=== PATIENT | male | born 1970 | race Caucasian/White ===

== ENCOUNTER → 2025-03-15 11:33 | Outpatient (BNV) | payer OTHER, SELFPAY | PROVIDERS: PCP Internal Medicine; Visit Provider Psychiatry & Neurology Neurology | DX: G62.89 Other specified polyneuropathies (principal) | CPT/HCPCS: 95886; 95913 ==

== ENCOUNTER 2025-03-15 12:12 | Outpatient (REF) | payer OTHER, SELFPAY ==
--- NOTE | 2025-03-15 | EMG_ITS ---
Impression: Normal motor and sensory nerve conduction velocities in the right upper extremity. 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 EMG of the left L4-S1 innervated muscles is consistent with distal chronic neuropathic changes. Please see detailed neurophysiological report MTDD
--- OUTSIDE RECORDS SUMMARY | 2025-03-15 13:13 | XMS_ITS ---
Author Name [facility] Organization Unknown History of Medication Use Medication Directions Dispensed Refills Start Date End Date Stat cholecalciferol (VITAMIN D-3) 50 mcg (2,000 unit) capsule Take 1 capsule (2,000 Units total) by mouth 1 (one) time each day. 01/24/2025 active acetaminophen (TYLENOL) 500 mg tablet 1-2 tabs PO Q8 hrs prn pain 01/12/2025 active diclofenac (VOLTAREN) 1 % topical gel Apply 4 g topically 4 (four) times a day if needed (pain or swelling). 01/11/2025 active lisinopriL (PRINIVIL,ZESTRIL) 20 mg tablet Take 1 tablet (20 mg total) by mouth 1 (one) time each day. 12/22/2024 active atorvastatin (LIPITOR) 80 mg tablet Take 1 tablet (80 mg total) by mouth 1 (one) time each day. 12/08/2024 active dilTIAZem CD (CARDIZEM CD) 360 mg 24 hr capsule Take 1 capsule (360 mg total) by mouth 1 (one) time each day. 12/08/2024 active omeprazole (PriLOSEC) [address] capsule Take 1 capsule (40 mg total) by mouth 1 (one) time each day. Do not crush or chew. 12/08/2024 active buprenorphine-naloxone (SUBOXONE) 2-0.5 [address] tablet [address] 2 tablets under the tongue every 4 (four) hours. After the medication is completely dissolved, take a large sip of water, swish it around teeth and gums, and swallow. Wait at least 1 hour before brushing teeth to avoid damage to your teeth. Max Daily Amount: 12 tablets 11/04/2024 active nystatin (MYCOSTATIN) 100,000 unit/gram powder Topical application on the rash (under the breast) twice a day for 7 to 10 days 01/15/2024 active zolpidem (AMBIEN) 10 mg tablet 10 mg. 07/29/2017 active escitalopram (LEXAPRO) 20 mg tablet 20 mg. 08/18/2012 active Allergies Allergen Reaction Severity Comment Documented Date Source Statu s IODINATED CONTRAST MEDIA 08/20/2022 [facility] active INFLUENZA VIRUS VACCINE, LIVE ATTENUATED 10/08/2021 [facility] active INFLUENZA VIRUS VACCINE TRI-SPLIT [id number] 06/14/2012 [facility] active MORPHINE Other Reaction(s): Intolerance - Will Not Trigger Allergy Alert,Arms got numb and red, Chest and face also got red Other reaction(s): Not Indicated 12/10/2010 [facility] active SULFA (SULFONAMIDE ANTIBIOTICS) RASH 12/09/2010 [facility] active Problems Problem Status Onset Date Problem Type Date of Resoluti on Source Carpal tunnel syndrome active 2017-07-29 ProblemAct [facility] Lumbar radiculopathy active 2014-06-15 ProblemAct [facility] Anxiety disorder active 2022-04-10 ProblemAct [facility] Fatty liver disease, nonalcoholic active 2016-08-20 ProblemAct [facility] Nephrolithiasis active 2016-05-13 Problem[address] [facility] Hyperlipidemia active 2017-07-29 ProblemAct [facility] Neuropathic pain active 2017-01-21 ProblemAct [facility] Opioid abuse, in remission ([facility] V24, [facility] V28) active 2015-04-26 ProblemAct [facility] Esophageal reflux active 2017-07-29 ProblemAct [facility] Type 2 diabetes mellitus without complication, without long-term current use of insulin ([facility] V24, [facility] V28) active 2017-12-09 ProblemAct [facility] Benign prostatic hyperplasia with urinary frequency active 2022-04-10 ProblemAct [facility] Primary osteoarthritis of right knee active 2023-02-11 ProblemAct [facility] Morbid obesity ([facility] V24, [facility] V28) active 2017-01-21 ProblemAct [facility] Primary hypertension active 2017-07-29 ProblemAct [facility] Psychosis, bipolar affective ([facility] V24, [facility] V28) active 2017-01-21 ProblemAct [facility] Elevated AST (SGOT) active 2016-05-13 ProblemAct [facility] Immunizations Vaccine Date Source Lot Number Status Tdap Tetanus diptheria acell ular pertussis (Boostrix; Adacel) 7yo and older 04/10/2022 [facility] [id number] completed Influenza trivalent, 0.5mL, preservative free (Fluarix; FluLaval; Fluzone) ages 6mo and older (Afluria) 3 years and older 06/14/2012 [id number] completed Tdap Tetanus diptheria acell ular pertussis (Boostrix; Adacel) 7yo and older 09/26/2010 [facility] [id number] completed
--- OUTSIDE RECORDS SUMMARY | 2025-03-15 13:13 | XMS_ITS | Clinical Summary ---
Author Organization [address] Address [address] [place] [address] Phone Care Team Providers Care Sleeve Tailor Name Role Phone Indu Gonzalez MD Primary Care Provider [phone] Allergies Active Allergy Reactions Criticality Noted Date Comments Influenza Virus Vaccine Tri-Split 4486-9988 06/14/2012 Influenza Virus Vaccine, Live Attenuated 10/08/2021 Iodinated Contrast Media 08/20/2022 Morphine 12/10/2010 Other Reaction(s): Intolerance - Will Not Trigger Allergy Alert Arms got numb and red, Chest and face also got red Other reaction(s): Not Indicated Sulfa (Sulfonamide Antibiotics) Rash 12/09/2010 Medications zolpidem (AMBIEN) 10 mg tablet 10 mg. 07/29/20 17 Active nystatin (MYCOSTATIN) 100,000 unit/gram powder Topical application on the rash (under the breast) twice a day for 7 to 10 days 01/15/20 24 Active escitalopram (LEXAPRO) 20 mg tablet 20 mg. 08/18/20 12 Active buprenorphine-nalo xone (SUBOXONE) 2-0.5 [address] tablet [address] 2 tablets under the tongue every 4 (four) hours. After the medication is completely dissolved, take a large sip of water, swish it around teeth and gums, and swallow. Wait at least 1 hour before brushing teeth to avoid damage to your teeth. Max Daily Amount: 12 tablets 11/05/19 25 025 Active atorvastatin (LIPITOR) 80 mg tablet Take 1 tablet (80 mg total) by mouth 1 (one) time each day. 90 tablet 1 12/09/19 25 Active dilTIAZem CD (CARDIZEM CD) 360 mg 24 hr capsule Take 1 capsule (360 mg total) by mouth 1 (one) time each day. 90 capsule 1 12/09/19 25 Active omeprazole (PriLOSEC) [address] capsule Take 1 capsule (40 mg total) by mouth 1 (one) time each day. Do not crush or chew. 90 each 1 12/09/19 25 025 Active diclofenac (VOLTAREN) 1 % topical gelIndications:Sabra alex osteoarthritis of right knee Apply 4 g topically 4 (four) times a day if needed (pain or swelling). 100 g 2 01/12/20 25 Active acetaminophen (TYLENOL) 500 mg tablet 1-2 tabs PO Q8 hrs prn pain 60 tablet 2 01/13/20 25 Active blood sugar diagnostic (FreeStyle Lite Strips) test strip Use to check fasting blood sugar daily 100 each 3 03/01/20 25 Active FreeStyle Lancets 28 gauge lancets Use to check fasting blood sugar once daily 100 each 3 03/01/20 25 Active cholecalciferol (VITAMIN D-3) 50 mcg (2,000 unit) capsule Take 1 capsule (2,000 Units total) by mouth 1 (one) time each day. 90 capsule 1 03/07/20 25 Active lisinopriL (PRINIVIL,ZESTRIL) 20 mg tablet Take 1 tablet (20 mg total) by mouth 1 (one) time each day. 90 each 1 03/07/20 25 026 Active lisinopriL (PRINIVIL,ZESTRIL) 20 mg tablet Take 1 tablet (20 mg total) by mouth 1 (one) time each day. 90 each 12/23/19 25 025 Discontinu ed(Reorder ) cholecalciferol (VITAMIN D-3) 50 mcg (2,000 unit) capsule Take 1 capsule (2,000 Units total) by mouth 1 (one) time each day. 30 capsule 5 01/25/20 25 025 Discontinu ed(Reorder ) diazePAM (Valium) 5 mg tablet Take 1 tablet (5 mg total) by mouth 1 (one) time for 1 dose. Take 1 tab by mouth 30 min prior to radiology exam Max Daily Amount: 5 mg 1 each 02/22/20 25 025 lancets lancets Check blood sugar daily 100 each 3 03/01/20 25 025 Discontinu ed(Dose adjustment ) glucose blood test strip Use to test blood sugar daily 100 each 3 03/01/20 25 025 Discontinu ed(Dose adjustment ) Active Problems Problem Noted Date Diagnosed Date Primary osteoarthritis of right knee 02/11/2023 Benign prostatic hyperplasia with urinary freque ncy 04/10/2022 Anxiety disorder 04/10/2022 Type 2 diabetes mellitus wit hout complication, without long-term current use of insulin ([facility] V24, [facility] V28) 12/09/2017 Primary hypertension 07/29/2017 Hyperlipidemia 07/29/2017 Esophageal reflux 07/29/2017 Carpal tunnel syndrome 07/29/2017 Neuropathic pain 01/21/2017 Morbid obesity ([facility] V24, [facility] V28) 2016 Psychosis, bipolar affective ([facility] V24, [facility] V28) 01/21/2017 Fatty liver disease, nonalcoholic 08/20/2016 Nephrolithiasis 05/13/2016 Elevated AST (SGOT) 05/13/2016 Elevated alanine aminotransferase (ALT) level Opioid abuse, in remission ([facility] V24, [facility] V28) 04/26/2015 Lumbar radiculopathy 06/15/2014 Resolved Problems Problem Noted Date Diagnosed Date Resolved Date Hypoalbuminemia 10/10/2024 11/02/2024 Anasarca 10/10/2024 11/02/2024 SIRS with acute organ dysfun ction due to infectious process ([facility] V24, [facility] V28) 10/09/2024 11/02/2024 Acute respiratory failure wi th hypoxemia ([facility] V24, [facility] V28) 10/07/2024 11/02/2024 Endotracheally intubated 10/07/202412/2024 On mechanically assisted marv tilation ([facility] V24, [facility] V28) 10/07/2024 11/02/2024 Aspiration pneumonia of both upper lobes due to gastric secretions ([facility] V24, [facility] V28) 10/07/2024 11/02/2024 Hypotension (arterial) 10/07/202411/02 Fever 10/07/2024 11/02/2024 Poorly controlled type 2 david betes mellitus ([facility] V24, [facility] V28) 10/07/2024 11/02/2024 Colitis 10/04/2024 11/02/2024 Constipation 10/03/2024 11/02/2024 Focal active colitis 10/03/2024 025 Encounters Date Type Department Care Team Description 03/08/2025 7:40 PM EDT - 03/08/2025 11:34 PM EDT Emergency [facility] Emergency [address] [place] [phone] Iván Calhoun MD Dark red stool (Primary Dx) Discharge Disposition: Home or Self Care 03/07/2025 2:00 PM EDT Office Visit Adult Medicine [address] [phone] Indu Gonzalez MD Type 2 diabetes mellitus without complication, without long-term current use of insulin ([facility] V24, [facility] V28) (Primary Dx); Primary hypertension; Mixed hyperlipidemia 03/07/2025 Telephone Adult Medicine [address] [phone] Indu Gonzalez MD vna 03/02/2025 9:00 AM EDT Clinical Support [address] [phone] Danielle Boyd RN Ileostomy in place ([facility] V24, [facility] V28) (Primary Dx) 03/01/2025 Telephone Adult Medicine [address] [phone] Indu Gonzalez MD Medication Problem 02/16/2025 10:00 AM EDT Clinical Support [address] [phone] Danielle Boyd RN Ileostomy in place ([facility] V24, [facility] V28) (Primary Dx) 02/16/2025 Telephone Adult Medicine [address] [phone] Indu Gonzalez MD Forms/questionnaires (dta) 02/16/2025 Telephone General Surgery [facility] [address] [phone] Dinorah Parisi MD Forms/questionnaires 02/13/2025 Telephone [facility] Health Worker Program [address] [place] [phone] Margot Melo Outreach/ EAEDC Documents 02/09/2025 Telephone [facility] Worker Program [address] [place] [phone] Margot Melo EAEDC Aplication 02/08/2025 Telephone General Surgery [facility] [address] [phone] Haley Lewis MA 02/06/2025 9:54 AM EDT - 02/06/2025 11:59 PM EDT Hospital Encounter Radiology Department - [address] [phone] Renal cyst Discharge Disposition: Home or Self Care 01/25/2025 Telephone Adult Medicine [address] [phone] Jerald Poole PA 01/24/2025 10:00 AM EDT Office Visit Adult [address] [phone] Jerald Poole PA Type 2 diabetes mellitus without complication, without long-term current use of insulin (CMS/HCC V24, CMS/HCC V28) (Primary Dx); Primary hypertension 01/24/2025 Telephone Adult Medicine [address] [phone] Indu Gonzalez MD Medication; Provider Call Back 01/24/2025 Telephone Orthopedic Surgery - [place] [address] [place] [phone] Kristine Melara NP Call back 01/11/2025 1:30 PM EDT Office Visit Orthopedic Surgery [facility] 250 175 [facility] [address] [place] [phone] Kristine Melara NP Primary osteoarthritis of right knee (Primary Dx) 01/11/2025 Telephone General [facility] [address] [phone] Dinorah Parisi MD FORMS/QUESTIONS 12/28/2024 5:39 PM EDT - 12/28/2024 11:59 PM EDT Hospital Encounter [facility] MRI [address] [place] [phone] Neuropathy Discharge Disposition: Home or Self Care 12/27/2024 3:15 PM EDT Office Visit General [facility] [address] [phone] Dinorah Parisi MD Ileostomy in place ([facility] V24, [facility] V28) (Primary Dx); Large bowel obstruction ([facility] V24, [facility] V28) 12/22/2024 10:30 AM EDT Office Visit [address] [phone] Indu Gonzalez MD Low testosterone (Primary Dx); Neuropathy; Type 2 diabetes mellitus without complication, without long-term current use of insulin ([facility] V24, [facility] V28); Primary hypertension; Mixed hyperlipidemia; Renal cyst 12/19/2024 Telephone General [facility] [address] [phone] Haley Lewis MA from Last 3 Months Immunizations Name Administration Dates Next Due Influenza trivalent, 0.5mL, preservative free (Fluarix; FluLaval; Fluzone) ages 6mo and older (Afluria) 3 years and older 06/14/2012 Tdap Tetanus diptheria acell ular pertussis (Boostrix; Adacel) 7yo and older 04/10/2022,09/26/2010 Surgical History Surgery Date Site/Laterality Comments CARPAL TUNNEL RELEASE Bilateral PROCEDURE: HISTORICAL CARPAL TUNNEL REL; COMMENT: Dr. Wallace ELBOW SURGERY Right PROCEDURE: HISTORICAL ELBOW SURGERY; COMMENT: Lateral Epicondyle Debridement, Dr. Wallace WRIST SURGERY Left PROCEDURE: HISTORICAL WRIST SURGERY; COMMENT: 1st Dorsal Compartment release, Dr. Wallace COLON SURGERY Medical History Medical History Date Comments GERD (gastroesophageal reflux disease) Depression Insomnia Opioid abuse ([facility] V24, [facility] V28) Diabetes mellitus ([facility] V24, [facility] V28) Hypertension Hyperlipidemia Family History Medical History Relation Name Comments Diabetes Maternal Grandfather Colon cancer Mother Diabetes Mother Relation Name Status Comments Maternal Grandfather Mother Social History Tobacco Use Types Packs/Day Years Used Date Smoking Tobacco: Former Cigarettes Tobacco Cessation:Counseling Given: Not Answered Alcohol Use Standard Drinks/Week Comments Never 0 (1 standard drink = 0.6 oz pur e alcohol) Housing Instability Answer Date Recorde d Are you worried that in the next 2 months you may not have stable housing? No 12/09/2024 Food Access & Nutrition Answer Date Rec orded Do you have access to a vari ety of food including fruits and vegetables? Yes 12/09/2024 Access to Healthcare Answer Date Record ed Within the last 3 months, ho w many times did you visit the emergency department for your medical care? 1 12/09/2024 Health Literacy Answer Date Recorded How often do you need to hav e someone help you when you read instructions, pamphlets, or other written material from your doctor or pharmacy? Sometimes 12/09/2024 Caregiver: How often do you need to have someone help you when you read instructions, pamphlets, or other written material from your doctor or pharmacy? Not on file 12/09/2024 Financial Risk Answer Date Recorded How hard is it for you to pa y for the very basics like food, housing, medical care, and air conditioning / heating? Very hard 12/09/2024 Transportation Answer Date Recorded Has the lack of transportati on kept you from meetings, work, or from getting things needed for daily living? No Has the lack of transportati on kept you from medical appointments or from getting medications? No 12/09/2024 Social Isolation Answer Date Recorded How often do you feel lonely or isolated from th ose around you? Never 12/09/2024 Food Risk Answer Date Recorded Within the past 12 months we worried whether our food would run out before we got money to buy more. Often true 12/09/2024 Within the past 12 months th e food we bought just didn't last and we didn't have money to get more. Often true 12/09/2024 Dependent Care Answer Date Recorded Do you need help finding or paying for care for your loved ones. For example, child and adolescent therapist or elderly care for an older adult? No 12/09/2024 Education Answer Date Recorded Do you think completing more education or training, like finishing a GED, going to college, or learning a trade, would be helpful for you? N/A 12/09/2024 Employment and Income Answer Date Recor ded During the last four weeks, have you been actively looking for work? No 12/09/2024 Living Situation Answer Date Recorded What is your living situation? 0 12/09/2024 Interpersonal Safety Answer Date Record ed Physical Abuse 10/04/2024 Verbal Abuse 10/04/2024 Sex and Gender Information Value Date Recorded Sex Assigned at Male 10/03/2024 4:41 PM EST Legal Sex Male 7:57 PM EST Gender Identity Male 10/03/2024 4:41 PM EST Sexual Orientation Straight 10/03/2024 4: 41 PM EST Obstetrics History Last Filed Vital Signs Vital Sign Reading Time Taken Comments Blood Pressure 106/85 03/08/2025 10:30 PM EDT Pulse 84 03/08/2025 10:30 PM EDT Temperature 36.8 C (98.2 F) 03/08/2025 7:43 PM EDT Respiratory Rate 18 03/08/2025 10:30 PM EDT Oxygen Saturation 95% 03/08/2025 10:30 PM EDT Inhaled Oxygen Concentration - - Weight 122 kg (268 lb) 03/08/2025 7:48 PM EDT Height 172.7 cm (5' 8 ) 03/08/2025 7:48 PM EDT Body Mass Index 40.75 03/08/2025 7:48 PM EDT Plan of Treatment Upcoming Encounters Date Type Department Care Team (Late st Contact Info) Description 03/29/2025 9:30 AM EDT Appointment [facility] Xray [address] [place] [phone] 06/23/2025 8:30 AM EDT Office Visit Adult Medicine [facility] [address] [place] [address] Indu Gonzalez MD [address] [place] [phone] Health Maintenance Due Date Last Done Comments Diabetes: Annual Foot Exam 1979 Diabetes: Annual Retina Eye Exam 1979 Hepatitis A Vaccines (1 of 2 - Risk 2-dose series) 1988 Hepatitis B Vaccines (1 of 3 - 19+ 3-dose series) 1988 Pneumococcal Vaccine: 50+ Years (1 of 2 - PCV) 1988 Zoster Vaccines (1 of 2) 2019 Colorectal Cancer Screening: Colonoscopy 08/02/2022 Hepatitis C Screening 08/02/2022 Diabetes: Annual Urine Albumin-Creatinine Ratio (uACR) 08/14/2022 COVID-19 Vaccine ( season) 2024 09/04/2021, 12/31/2020 Depression Screening 12/17/2024 12/18/2023 Influenza Vaccine (#1) 2025 06/14/2012 Diabetes: Blood Sugar Control Test (HGBA1C) 06/09/2025 12/08/2024, 10/06/2024, 04/14/2024, Additional history exists Social Influencers of Health Screening 12/09/2025 12/09/2024 Diabetes: Annual GFR (Glomerular Filtration Rate) 03/08/2026 03/08/2025, 12/08/2024, 11/02/2024, Additional history exists Hypertension/CHF/CAD Annual BMP Blood Test 03/08/2026 03/08/2025, 12/08/2024, 11/02/2024, Additional history exists Cholesterol Screening (Lipid Panel) 12/08/2029 12/08/2024, 04/14/2024, 04/14/2024, Additional history exists DTaP,Tdap,and Td Vaccines (3 - Td or Tdap) 04/10/2032 04/10/2022, 09/26/2010 HIV Screening Completed 04/10/2022 HIB Vaccines Aged Out No longer eligi ble based on patient's age to complete this topic HPV Vaccines Aged Out No longer eligi ble based on patient's age to complete this topic IPV Vaccines Aged Out No longer eligi ble based on patient's age to complete this topic MMR Vaccines Aged Out No longer eligi ble based on patient's age to complete this topic Meningococcal ACWY Vaccine Aged Out N o longer eligible based on patient's age to complete this topic Meningococcal B Vaccine Aged Out No l onger eligible based on patient's age to complete this topic RSV Immunization Patients Under 20 months Aged Out No longer eligible based on patient's age to complete this topic Varicella Vaccines Aged Out No longer eligible based on patient's age to complete this topic Procedures Procedure Name Priority Date/Time Associated Diagnosis Comments CBC WITH AUTO DIFFERENTIAL STAT 03/08/2025 8:04 PM EDT COMPREHENSIVE METABOLIC PANEL STAT 03/08/2025 8:04 PM EDT CBC AND DIFFERENTIAL STAT 03/08/2025 8:04 PM EDT US RETROPERITONEAL COMPLETE Routine 02/06/2025 10:21 AM EDT Renal cyst POC GLUCOSE Routine 01/24/2025 10:18 AM EDT Type 2 diabetes mellitus without complication, without long-term current use of insulin ([facility]CC V24, CMS/HCC V28) MR BRAIN WO CONTRAST Routine 12/28/2024 7:34 PM EDT Neuropathy HEMOGLOBIN A1C Routine 12/08/2024 10:45 AM EDT Type 2 diabetes mellitus without complication, without long-term current use of insulin (CMS/HCC V24, CMS/HCC V28) LIPID PANEL WITH REFLEX TO DIRECT LDL Routine 12/08/2024 10:45 AM EDT Type 2 diabetes mellitus without complication, without long-term current use of insulin (CMS/HCC V24, CMS/HCC V28) HM DEPRESSION SCREENING Routine 12/18/2023 HIV SCREENING Routine 04/10/2022 from Last 3 Months or Most Recently Relevant to Health Maintenance Results * (ABNORMAL) CBC auto differential (03/08/2025 8:04 PM EDT) [facility] WBC 5.7 4.8 - 10.8 K/mcL LAB HEMETOLOGY METHOD 03/08/2025 9:00 PM [facility] RBC 3.60(L) 4.50 - 5.50 M/mcL LAB HEMETOLOGY METHOD 03/08/2025 9:00 PM [facility] Hemoglobin 11.1(L) 13.5 - 17.5 g/dL LAB HEMETOLOGY METHOD 03/08/2025 9:00 PM [facility] Hematocrit 32.1(L) 42.0 - 54.0 % LAB HEMETOLOGY METHOD 03/08/2025 9:00 PM [facility] MCV 90.4 79.0 - 98.0 FL LAB HEMETOLOGY METHOD 03/08/2025 9:00 PM [facility] MCH 31.3 27.0 - 32.0 pcg LAB HEMETOLOGY METHOD 03/08/2025 9:00 PM [facility] MCHC 34.6 32.0 - 37.0 g/dL LAB HEMETOLOGY METHOD 03/08/2025 9:00 PM [facility] RDW 12.8 11.0 - 15.0 % LAB HEMETOLOGY METHOD 03/08/2025 9:00 PM [facility] Platelets 288 130 - 400 K/mcL LAB HEMETOLOGY METHOD 03/08/2025 9:00 PM [facility] MPV 9.7 7.0 - 11.0 FL LAB HEMETOLOGY METHOD 03/08/2025 9:00 PM [facility] NRBC 0.0 <1.0 % LAB HEMETOLOGY METHOD 03/08/2025 9:00 PM [facility] NRBC Absolute 0.00 <0.10 K/mcL LAB HEMETOLOGY METHOD 03/08/2025 9:00 PM [facility] Neutrophils Relative 53.2 % LAB HEMETOLOGY METHOD 03/08/2025 9:00 PM [facility] Lymphocytes Relative 34.0 % LAB HEMETOLOGY METHOD 03/08/2025 9:00 PM [facility] Monocytes Relative 9.9 % LAB HEMETOLOGY METHOD 03/08/2025 9:00 PM [facility] Eosinophils Relative 1.8 % LAB HEMETOLOGY METHOD 03/08/2025 9:00 PM [facility] Basophils Relative 0.7 % LAB HEMETOLOGY METHOD 03/08/2025 9:00 PM [facility] Immature Granulocytes Relative 0.4 % LAB HEMETOLOGY METHOD 03/08/2025 9:00 PM [facility] Neutrophils Absolute 3.03 1.50 - 7.00 K/mcL LAB HEMETOLOGY METHOD 03/08/2025 9:00 PM [facility] Lymphocytes Absolute 1.93 1.00 - 5.00 K/mcL LAB HEMETOLOGY METHOD 03/08/2025 9:00 PM [facility] Monocytes Absolute 0.56 0.20 - 1.00 K/mcL LAB HEMETOLOGY METHOD 03/08/2025 9:00 PM [facility] Eosinophils Absolute 0.10 0.00 - 0.50 K/mcL LAB HEMETOLOGY METHOD 03/08/2025 9:00 PM [facility] Basophils Absolute 0.04 0.00 - 0.20 K/mcL LAB HEMETOLOGY METHOD 03/08/2025 9:00 PM EDT [facility] Immature Granulocytes Absolute 0.02 0.00 - 0.03 K/mcL LAB HEMETOLOGY METHOD 03/08/2025 9:00 PM [facility] Blood Venous blood specimen / Unknown Venipuncture / Unknown 03/08/2025 8:04 PM EDT 03/08/2025 8:52 PM EDT Iván Patel MD LAB BLOOD ORDERABLES Final Result [facility] [address] [place] [address], * (ABNORMAL) Comprehensive metabolic panel (03/08/2025 8:04 PM EDT) Sodium 137 133 - 145 mmol/L LAB CHEMISTRY METHOD 03/08/2025 9:32 PM [facility] Potassium 4.7 3.5 - 5.5 mmol/L LAB CHEMISTRY METHOD 03/08/2025 9:32 PM [facility] Chloride 103 96 - 110 mmol/L LAB CHEMISTRY METHOD 03/08/2025 9:32 PM [facility] CO2 29 21 - 32 mmol/L LAB CHEMISTRY METHOD 03/08/2025 9:32 PM [facility] Anion Gap 5 3 - 11 LAB CHEMISTRY METHOD 03/08/2025 9:32 PM [facility] Glucose 193(H) 70 - 100 mg/dL LAB CHEMISTRY METHOD 03/08/2025 9:32 PM [facility] BUN 23 5 - 25 mg/dL LAB CHEMISTRY METHOD 03/08/2025 9:32 PM [facility] Creatinine 0.98 0.70 - 1.30 mg/dL LAB CHEMISTRY METHOD 03/08/2025 9:32 PM [facility] eGFR 91 >=60 mL/min/1. 73m2 LAB CHEMISTRY METHOD 03/08/2025 9:32 PM EDT [facility] Comment:Calculation based on the Chronic Kidney Disease Epidemiology Collaboration (CKD-EPI) equation refit without adjustment for race. BUN/Creatinine Ratio 23.5 LAB CHEMISTRY METHOD 03/08/2025 9:32 PM EDT [facility] Calcium 9.2 8.5 - 10.5 mg/dL LAB CHEMISTRY METHOD 03/08/2025 9:32 PM EDT [facility] AST (SGOT) 20 10 - 42 unit/L LAB CHEMISTRY METHOD 03/08/2025 9:32 PM [facility] ALT (SGPT) 32 10 - 60 unit/L LAB CHEMISTRY METHOD 03/08/2025 9:32 PM EDT [facility] Alkaline Phosphatase 97 42 - 121 unit/L LAB CHEMISTRY METHOD 03/08/2025 9:32 PM EDT [facility] Total Protein 7.1 6.0 - 8.0 g/dL LAB CHEMISTRY METHOD 03/08/2025 9:32 PM EDT [facility] Albumin 3.7 3.2 - 5.0 g/dL LAB CHEMISTRY METHOD 03/08/2025 9:32 PM EDT [facility] Total Bilirubin 0.5 0.0 - 1.4 mg/dL LAB CHEMISTRY METHOD 03/08/2025 9:32 PM EDT [facility] Blood Venous blood specimen / Unknown Venipuncture / Unknown 03/08/2025 8:04 PM EDT 03/08/2025 8:52 PM EDT us Iván Patel MD LAB BLOOD ORDERABLES Final Result [facility] [address] [place] [address], * US Retroperitoneal Complete (02/06/2025 10:21 AM EDT) Anatomical Region Laterality Modality Body Ultrasound 02/06/2025 11:1 5 AM EDT Impressions 02/06/2025 11:18 AM EDT Limited exam. No right renal calculus or renal cysts are identified. The bladder is unable to be evaluated since the patient voided. -------- FINAL REPORT -------- Dictated By: Michelle Antonio Dictated Date: 02/06/2025 11:15 ET Assigned Physician: Michelle Antonio Reviewed and Electronically Signed By: Michelle Antonio Signed Date: 02/06/2025 11:18 ET Workstation ID: [id number] Transcribed By: Self Edit Transcribed Date: 02/06/2025 11:15 ET Narrative 02/06/2025 11:18 AM EDT US RETROPERITONEAL COMPLETE HISTORY: Renal cyst and right nephrolithiasis on CT 10/2026. Prior study: None currently available. FINDINGS: The study is limited by the patient's inability to fill the bladder. There is also limited by the patient's body habitus and overlying bowel gastrojejunostomy. The right kidney measures 12.0 cm in length. The left kidney measures 11.0 cm in length. Both kidneys demonstrate normal echotexture. No hydronephrosis, masses, calculi, or perinephric collections are seen. The patient voided prior to the exam. The bladder is not visualized. Procedure Note Michelle Antonio MD - 02/06/2025 US RETROPERITONEAL COMPLETE HISTORY: Renal cyst and right nephrolithiasis on CT 10/2026. Prior study: None currently available. FINDINGS: The study is limited by the patient's inability to fill thebladder. There is also limited by the patient's body habitus and overlyingbowel gastrojejunostomy. The right kidney measures 12.0 cm in length. The left kidney measures 11.0cm in length. Both kidneys demonstrate normal echotexture. Nohydronephrosis, masses, calculi, or perinephric collections are seen. The patient voided prior to the exam. The bladder is not visualized. IMPRESSION: Limited exam. No right renal calculus or renal cysts are identified. The bladder is unable to be evaluated since the patient voided. -------- FINAL REPORT -------- Dictated By: Michelle Antonio Dictated Date: 02/06/2025 11:15 ET Assigned Physician: Michelle Antonio Reviewed and Electronically Signed By: Michelle Antonio Signed Date: 02/06/2025 11:18 ET Workstation ID: [id number] Transcribed By: Self Edit Transcribed Date: 02/06/2025 11:15 ET Indu Gonzalez MD IMG US PROCEDURES Final Result * (ABNORMAL) POC glucose manually resulted (01/24/2025 10:18 AM EDT) Glucose POC 180 mg/dL Blood Capillary blood specimen / Unknown 01/24/2025 10:18 AM EDT [facility] POINT OF CARE TEST ENTER/EDIT ORDERABLES Final Result * MR Brain wo Contrast (12/28/2024 7:34 PM EDT) Anatomical Region Laterality Modality Head and Neck Magnetic Resonan ce 12/28/2024 9:12 PM EDT Impressions 12/29/2024 8:45 AM EDT Normal brain MRI without contrast. Stable exam compared to 2007 -------- FINAL REPORT -------- Dictated By: ANDREA CALIX Dictated Date: 12/28/2024 21:12 ET Assigned Physician: ANDREA CALIX Reviewed and Electronically Signed By: ANDREA CALIX Signed Date: 12/29/2024 08:45 ET Workstation ID: [id number] Transcribed By: Self Edit Transcribed Date: 12/28/2024 21:37 ET Narrative 12/29/2024 8:45 AM EDT PROCEDURE: Brain MRI INDICATION: Polyneuropathy, numbness TECHNIQUE: Multiplanar, multisequence MRI of the brain Without contrast. COMPARISON: 11/26/2007. FINDINGS: No acute infarct, mass effect, or intracranial hemorrhage. Brain parenchyma is normal in signal. Prominent right sublenticular perivascular space is similar compared to prior and within normal limits. No abnormal intracranial susceptibility artifact. Sella and foramen magnum are normal. Ventricles, sulci, and cisterns are normal in size and configuration. No hydrocephalus. Major intracranial arterial flow voids are normal. Sinuses are clear. Trace bilateral mastoid fluid. Orbits and extracranial soft tissues are normal. Calvarium is normal. Procedure Note Andrea Calix MD - 12/29/2024 PROCEDURE: Brain MRI INDICATION: Polyneuropathy, numbness TECHNIQUE: Multiplanar, multisequence MRI of the brain Without contrast. COMPARISON: 11/26/2007. FINDINGS: No acute infarct, mass effect, or intracranial hemorrhage. Brain parenchyma is normal in signal. Prominent right sublenticularperivascular space is similar compared to prior and within normallimits. No abnormal intracranial susceptibility artifact. Sella and foramen magnum are normal. Ventricles, sulci, and cisterns are normal in size and configuration. Nohydrocephalus. Major intracranial arterial flow voids are normal. Sinuses are clear. Trace bilateral mastoid fluid. Orbits and extracranial soft tissues are normal. Calvarium is normal. IMPRESSION: Normal brain MRI without contrast. Stable exam compared to 2007 -------- FINAL REPORT -------- Dictated By: ANDREA CALIX Dictated Date: 12/28/2024 21:12 ET Assigned Physician: ANDREA CALIX Reviewed and Electronically Signed By: ANDREA CALIX Signed Date: 12/29/2024 08:45 ET Workstation ID: [id number] Transcribed By: Self Edit Transcribed Date: 12/28/2024 21:37 ET Indu Gonzalez MD [facility] MRI PROCEDURES Final Result * Lipid panel with reflex to direct LDL (12/08/2024 10:45 AM EDT) Cholesterol 84 0 - 200 mg/dL LAB CHEMISTRY METHOD 12/08/2024 2:56 PM EDT [facility] Triglycerides 127 0 - 150 mg/dL LAB CHEMISTRY METHOD 12/08/2024 2:56 PM EDT [facility] HDL 44 >=40 mg/dL LAB CHEMISTRY METHOD 12/08/2024 2:56 PM EDT [facility] LDL Calculated 15 0 - 100 mg/dL LAB CHEMISTRY METHOD 12/08/2024 2:56 PM EDT [facility] VLDL Cholesterol Dago 25.4 mg/dL LAB CHEMISTRY METHOD 12/08/2024 2:56 PM EDT [facility] Non HDL Chol. (LDL+VLDL) 40 <145 mg/dL LAB CHEMISTRY METHOD 12/08/2024 2:56 PM EDT [facility] Chol/HDL Ratio 1.9 0.0 - 4.4 LAB CHEMISTRY METHOD 12/08/2024 2:56 PM EDT [facility] Blood Venous blood specimen / Unknown Venipuncture / Unknown 12/08/2024 10:45 AM EDT 12/08/2024 10:45 AM EDT us Indu Gonzalez MD LAB BLOOD ORDERABLES Final Resul t Performing Organization Address City/[facility]/ZIP Co de Phone Number [facility] [address] [place] [address], [place] [phone] * (ABNORMAL) Hemoglobin A1c (12/08/2024 10:45 AM EDT) Hemoglobin A1C 7.5(H) <6.5 % LAB CHEMISTRY METHOD 12/09/2024 12:36 PM EDT [facility] Mean Bld Glu Estim. 169 mg/dL LAB CHEMISTRY METHOD 12/09/2024 12:36 PM EDT [facility] Blood Venous blood specimen / Unknown Venipuncture / Unknown 12/08/2024 10:45 AM EDT 12/08/2024 10:45 AM EDT us Indu Gonzalez MD LAB BLOOD ORDERABLES Final Resul t Performing Organization Address City/[facility]/ZIP Co de Phone Number [facility] [address] [place] [address], [place] [phone] * Hm Depression Screening (12/18/2023) HM Depression Screening abstracted us Historical Provider HEALTH MAINTENANCE Final Result * Hm HIV Screening (04/10/2022) HIV Screening abstracted us Historical Provider HEALTH MAINTENANCE Final Result from Last 3 Months or Most Recently Relevant to Health Maintenance Additional Health Concerns Infection Onset Date Last Indicated ESBL 10/07/2024 10/17/2024 MDRO (other) 10/17/2024 10/17/2024 Insurance [facility] [employer] Advance Directives Documents on File Type Date Recorded 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 Do not modify or discontinue any currently active code status orders. Healthcare Agents on File Name Relationship Healthcare Agent Relationshi p Communication Micah Jordyn Father Health Care Agent Care Teams Sleeve Tailor Relationship Specialty Start Date End Date Indu Gonzalez MD [address] [place] [id number] PCP - General Internal Medicine 12/28/23
--- OUTSIDE RECORDS SUMMARY | 2025-03-15 13:13 | XMS_ITS | Clinical Summary ---
Author Organization [facility] Address [address] [place] [address] Care Team Providers Care [employer] [facility] Receptionist Name Role Phone Unavailable Primary Care Provider Unavailabl e Source Comments PLEASE NOTE, if this patient is a minor, it may be UNLAWFUL to discuss sensitive information that is contained in these records (such as FAMILY PLANNING, MENTAL HEALTH or SUBSTANCE ABUSE) with the minor patient's parent or other person without the patient's specific authorization.[facility] Allergies Active Allergy Reactions Criticality Noted Date Comments Influenza Virus Vaccine, Specific 09/12/2019 Iodinated Contrast Media 08/20/2022 Morphine Intolerance - Will Not Trigger Allergy Alert 09/12/2019 Arms got numb and red, Chest and face also got red Other reaction(s): Not Indicated Sulfa (Sulfonamide Antibiotics) Rash 09/12/2019 Sulfadiazine 08/20/2022 Medications lidocaine 5 % oint lidocaine 5 % topical ointment APPLY TO AFFECTED AREA(S) BY TOPICAL ROUTE 1 TIME DAILY NEEDED Active QUEtiapine (SEROQUEL) 25 mg tablet quetiapine 25 mg tablet Active nitrofurantoin monohyd/m-cryst (MACROBID) 100 mg capsule nitrofurantoin monohydrate/macroc rystals 100 mg capsule Active naloxone (NARCAN) 4 mg/actuation nasal spray Narcan 4 mg/actuation nasal spray Active buprenorphine-nal oxone (SUBOXONE) 8-2 mg SL film Suboxone 8 mg-2 mg sublingual film Active escitalopram oxalate (LEXAPRO) 20 mg tablet 08/08/20 19 Active ceramides 1,3,6-11 (CERAVE) lotnIndications:A topic dermatitis, unspecified type Apply 1 Ampule topically 2 (two) times daily 355 mL 1 09/12/19 20 Active zolpidem (AMBIEN) 10 mg tablet TK 1 T PO QD HS 09/28/19 20 Active crisaborole (EUCRISA) 2 % oint Apply 1 Ampule topically 2 (two) times daily 100 g 10/24/19 20 Active ceramides 1,3,6-11 (CERAVE) lotn Apply 1 Ampule topically once daily 355 mL 10/24/19 20 Active tamsulosin (FLOMAX) 0.4 mg 24 hr capsuleIndication s:Benign prostatic hyperplasia with nocturia TAKE 1 CAPSULE BY MOUTH EVERY DAY 30 Capsule 2 07/04/20 21 Active ARIPiprazole (ABILIFY) 2 mg tablet TAKE 1 TABLET BY MOUTH EVERY DAY IN THE MORNING 09/25/19 22 Active povidone-iodine 10 % soln APPLY 1 APPLICATION DAILY BY TOPICAL ROUTE 08/19/20 21 Active BIOTENE DRY MOUTH ORAL RINSE mwsh USE 10 ML BY MOUTH THREE TIMES DAILY DIRECTED. SPIT OUT. 10/17/19 22 Active alcohol swabsIndications: Uncontrolled type 2 diabetes mellitus with hyperglycemia ([facility]) check sugar daily. Dx; E11.65 100 Each 11 04/23/20 22 Active gibran.stocking, thigh,reg,medIndi cations:Edema, unspecified type Use one pair daily during daytime hours. Compression goal 15-20 mmHg 14 Each 05/20/20 22 Active metFORMIN (GLUCOPHAGE) 1,000 mg tabletIndications :Type 2 diabetes mellitus without complication, without long-term current use of insulin ([facility]) TAKE 1 TABLET BY MOUTH TWICE DAILY WITH A MEAL 60 Tablet 2 07/07/20 22 Active azithromycin (ZITHROMAX) 250 mg tabletIndications :Bronchitis Take 2 tabs by mouth today, followed by 1 tab by mouth for four more days. 6 Tablet 08/12/20 22 Active benzonatate (TESSALON) 200 mg capsuleIndication s:Bronchitis Take 1 Capsule by mouth 3 (three) times daily as needed for cough for up to 3 days 12 Capsule 08/12/20 22 Active zolpidem (AMBIEN) 10 mg tablet Ambien Take No date recorded No form recorded No frequency recorded No route recorded No set duration recorded No set duration amount recorded active No dosage strength recorded No dosage strength units of measure recorded Active LISINOPRIL ORAL lisinopril Take No date recorded No form recorded No frequency recorded No route recorded No set duration recorded No set duration amount recorded active No dosage strength recorded No dosage strength units of measure recorded Active magnesium 250 mg tab magnesium Take No date recorded No form recorded No frequency recorded No route recorded No set duration recorded No set duration amount recorded active No dosage strength recorded No dosage strength units of measure recorded Active metFORMIN (GLUCOPHAGE) 500 mg tablet metformin Take No date recorded No form recorded No frequency recorded No route recorded No set duration recorded No set duration amount recorded active No dosage strength recorded No dosage strength units of measure recorded Active OMEPRAZOLE, BULK, MISC omeprazole Take No date recorded No form recorded No frequency recorded No route recorded No set duration recorded No set duration amount recorded active No dosage strength recorded No dosage strength units of measure recorded Active metFORMIN (GLUCOPHAGE) 1,000 mg tabletIndications :Type 2 diabetes mellitus without complication, without long-term current use of insulin ([facility]) Take 1 Tablet by mouth 2 (two) times daily with a meal 60 Tablet 4 08/20/20 Active nicotine (NICOTROL) 10 mg inhalerIndication s:Smoking INHALE 1 PUFF INTO THE LUNGS EVERY 2 HOURS FOR UP TO 42 DAYS NEEDED FOR SMOKING CESSATION 168 Each 4 08/20/20 Active glipiZIDE (GLUCOTROL) 5 mg tabletIndications :Uncontrolled type 2 diabetes mellitus with hyperglycemia ([facility]) TAKE 1 TABLET BY MOUTH TWICE DAILY FOR DIABETES 60 Tablet 4 08/20/20 Active lisinopriL 40 mg tabletIndications :Essential hypertension Take 1 Tablet by mouth once daily 60 Tablet 4 08/20/20 Active fluoride, sodium, (DENTAGEL) 1.1 % gelIndications:De ntal caries USE DIRECTED IN MOUTH EVERY DAY 56 g 4 08/20/20 Active blood sugar diagnostic stripsIndications :Uncontrolled type 2 diabetes mellitus with hyperglycemia ([facility]) Freestyle lite teststrips, check sugar daily. Dx; E11.65 100 Each 08/20/20 Active blood-glucose meter monitoring kitIndications:Un controlled type 2 diabetes mellitus with hyperglycemia ([facility]) Freestyle lite glucometer, check sugar daily. Dx; E11.65 1 Each 08/20/20 Active lancetsIndication s:Uncontrolled type 2 diabetes mellitus with hyperglycemia ([facility]) Freestyle lite lancets, check sugar daily. Dx; E11.65 100 Each 4 08/20/20 22 Active triamcinolone (KENALOG) 0.1 % ointmentIndicatio ns:Eczema of both hands Apply topically 2 (two) times daily Apply topically 2 (two) times daily to hands 80 g 4 08/20/20 22 Active guaiFENesin 400 mg tab Take 1 Tablet by mouth every 4 (four) hours as needed for cough 30 Tablet 1 08/20/20 22 Active metFORMIN (GLUCOPHAGE) 1,000 mg tabletIndications :Type 2 diabetes mellitus without complication, without long-term current use of insulin ([facility]) TAKE 1 TABLET BY MOUTH TWICE DAILY WITH A MEAL 60 Tablet 2 10/13/19 23 Active nicotine, polacrilex, (NICORETTE) 4 mg gumIndications:Sm oking CHEW 1 PIECE OF GUM BY MOUTH EVERY 2 HOURS NEEDED FOR SMOKING CESSATION 200 Each 2 11/17/19 23 Active omeprazole (PRILOSEC) [address] capsuleIndication s:Gastroesophagea l reflux disease TAKE 1 CAPSULE BY MOUTH EVERY DAY 30 Capsule 4 11/17/19 23 Active lidocaine (LIDODERM) 5 % patchIndications: Chronic low back pain, unspecified back pain laterality, unspecified whether sciatica present Use one patch on back for back pain, on for 12 hours, off for 12 hours 30 Patch 12/25/19 23 Active atorvastatin (LIPITOR) 80 mg tabletIndications :Type 2 diabetes mellitus without complication, without long-term current use of insulin ([facility]),Essentia l hypertension,Hype rcholesteremia TAKE 1 TABLET BY MOUTH EVERY DAY 90 Tablet 4 02/25/20 23 Active dilTIAZem HCL (CARDIZEM CD) 360 mg 24 hr capsuleIndication s:Essential hypertension TAKE 1 CAPSULE BY MOUTH EVERY DAY 90 Capsule 3 02/25/20 23 Active Active Problems Problem Noted Date Diagnosed Date Anxiety disorder 04/10/2022 Smoking 04/10/2022 Skin sensitivity 04/10/2022 Benign prostatic hyperplasia with urinary freque ncy 04/10/2022 Need for Tdap vaccination 04/10/2022 Edema 04/10/2022 Uncomplicated opioid dependence ([facility]) 09/12/2019 Primary hypertension 09/12/2019 Ingrowing left great toenail 12/09/2017 Foot pain 12/09/2017 Pain in both feet 12/09/2017 Plantar fasciitis 12/09/2017 Type 2 diabetes mellitus ([facility]) 018 Immunizations Immunization Administration Dates Next Due TDAP 04/10/2022,09/26/2010 Social History Tobacco Use Types Packs/Day Years Used Date Smoking Tobacco: Every Day Cigarettes Smokeless Tobacco: Never Tobacco Cessation:Ready to Q uit: Yes; Counseling Given: Not Answered Alcohol Use Standard Drinks/Week Comments Not Currently 0 (1 standard drink = 0.6 oz pur e alcohol) Social Connections Answer Date Recorded Connectedness 0 04/28/2022 Financial Resource Strain Answer Date R ecorded Financial Resource Strain 0 2021 Stress Answer Date Recorded Stress 0 04/28/2022 Physical Activity Answer Date Recorded Physical Activity 0 10/26/2019 Food Insecurity Answer Date Recorded Food 0 04/28/2022 Transportation Needs Answer Date Record ed Transportation 0 04/28/2022 Housing Stability Answer Date Recorded Housing 0 04/28/2022 Safety and Environment Answer Date Aidan rded Safety 0 04/28/2022 Utilities Answer Date Recorded Utilities 0 04/28/2022 Employment Answer Date Recorded Stress 0 10/26/2019 Sex and Gender Information Value Date Recorded Sex Assigned at Male 09/12/2019 6:46 AM PST Legal Sex Male 7:01 AM PST Gender Identity Male 09/12/2019 6:46 AM PST Sexual Orientation Straight 09/12/2019 6: 46 AM PST Last Filed Vital Signs Vital Sign Reading Time Taken Comments Blood Pressure 130/76 08/20/2022 11:14 AM EST Pulse 84 08/20/2022 11:14 AM EST Temperature 36.6 C (97.8 F) 08/20/2022 11:14 AM EST Respiratory Rate 20 08/20/2022 11:14 AM EST Oxygen Saturation 93% 08/20/2022 11:14 AM EST Inhaled Oxygen Concentration - - Weight 122.5 kg (270 lb) 08/20/2022 11:14 AM EST Height 170.2 cm (5' 7 ) 08/20/2022 11:14 AM EST Body Mass Index 42.29 08/20/2022 11:14 AM EST Plan of Treatment Health Maintenance Due Date Last Done Comments Anxiety Screening 1969 Dental Examination 1969 Imm-Hepatitis B (1 of 3 - 19 + 3-dose series) 1988 CT Colonography 2014 Colonoscopy 2014 Colorectal Cancer Screening 2014 FIT/gFOBT 2014 Fecal DNA 2014 Flexible Sigmoidoscopy 2014 Imm-Pneumococcal 50+ (1 of 1 - PCV) 2019 Imm-Zoster, Recombinant (1 of 2) 2019 Annual Wellness (Adult): Ind icated (All Coverage) 09/12/2020 09/12/2019 Lipid Screening 04/10/2023 04/10/2022, 09/12/2019 Tobacco Screening 04/28/2023 04/28/2022, , 12/31/2021 Hypertension Screening (#1) 08/20/2023 Tobacco Cessation Counseling (#1) 11/16/2023 04/28/2022, 04/10/2022, 12/31/2021 [id number] ( season) 2024 022, 12/31/2020 Alcohol and Drug Screen 08/31/2024 10/02/19 22, 09/12/2019, 09/12/2019 (Managed by Outside Provider) Depression Annual Screen 08/31/2024 09/12/2019 Imm-Influenza (#1) 2025 Diabetes Screening 10/04/2025 10/04/2024, 0 10/03/2024, 05/20/2022, Additional history exists Imm-DTaP/Tdap/Td (3 - Td or Tdap) 04/10/2032 022, 09/26/2010 Hepatitis C Screening Completed 09/12/2019 HIV Screening Completed 04/10/2022 Procedures Procedure Name Priority Date/Time Associated Diagnosis Comments HGBA1C W/MPG Routine 05/20/2022 10:03 AM EDT Type 2 diabetes mellitus with hyperglycemia, without long-term current use of insulin ([facility]) HIV 1/2 AG & AB W/RFLX (4TH GEN) Routine 04/10/2022 11:11 AM EDT Routine adult health maintenance LIPID PANEL Routine 04/10/2022 11:11 AM EDT Type 2 diabetes mellitus without complication, without long-term current use of insulin ([facility]) HEPATITIS A,B,C PANEL Routine 09/12/2019 10:32 AM EST Routine adult health maintenance from Last 3 Months or Most Recently Relevant to Health Maintenance Results * (ABNORMAL) HGBA1C W/MPG (05/20/2022 10:03 AM EDT) HEMOGLOBIN A1C 9.0(H) <5.7 % of total Hgb [facility] Comment: For someone without known diabetes, a hemoglobin A1c value of 6.5% or greater indicates that they may have diabetes and this should be confirmed with a follow-up test. For someone with known diabetes, a value <7% indicates that their diabetes is well controlled and a value greater than or equal to 7% indicates suboptimal control. A1c targets should be individualized based on duration of diabetes, age, comorbid conditions, and other considerations. Currently, no consensus exists regarding use of hemoglobin A1c for diagnosis of diabetes for children. MEAN PLASMA GLUCOSE 243 mg/dL (calc) [facility] Blood Blood / Unknown 05/20/2022 1 0:03 AM EDT 05/20/2022 10:04 AM EDT [facility] - BLOOD DRAW Final Result [facility] [address] [address], [facility] [address] [address] * HIV 1/2 AG & AB W/RFLX (4TH GEN) (04/10/2022 11:11 AM EDT) HIV AG/AB, 4TH GEN NON-REAC TIVE NON-REAC TIVE [facility] Comment: HIV-1 antigen and HIV-1/HIV-2 antibodies were not detected. There is no laboratory evidence of HIV infection. PLEASE NOTE: This information has been disclosed to you from records whose confidentiality may be protected by state law. If your state requires such protection, then the state law prohibits you from making any further disclosure of the information without the specific written consent of the person to whom it pertains, or as otherwise permitted by law. A general authorization for the release of medical or other information is NOT sufficient for this purpose. For additional information please refer to http://[employer]/faq/ZVV053 (This link is being provided for informational/ educational purposes only.) The performance of this assay has not been clinically validated in patients less than 2 years old. Blood Blood / Unknown 04/10/2022 1 1:11 AM EDT 04/10/2022 11:11 AM EDT [facility] - BLOOD DRAW Final Result [facility] [address] [address], [facility] [address] [address] * (ABNORMAL) LIPID PANEL (04/10/2022 11:11 AM EDT) CHOLESTEROL, TOTAL 167 <200 mg/dL [facility] HDL CHOLESTEROL 40 > OR = 40 mg/dL [facility] TRIGLYCERIDES 99 <150 mg/dL [facility] LDL-CHOLESTEROL 108(H) 99 mg/dL (calc) [facility] Comment: Reference range: <100 Desirable range <100 mg/dL for primary prevention; <70 mg/dL for patients with CHD or diabetic patients with > or = 2 CHD risk factors. LDL-C is now calculated using the Christopher-Cristina calculation, which is a validated novel method providing better accuracy than the Friedewald equation in the estimation of LDL-C. Christopher SS et al. VERN. 2013;310(19): 8754-8387 (http://[employer] [employer].Sk[employer].it/faq/YTL042) CHOL/HDLC RATIO 4.2 <5.0 (calc) [facility] NON-HDL CHOLESTEROL 127 <130 mg/dL (calc) [facility] Comment: For patients with diabetes plus 1 major ASCVD risk factor, treating to a non-HDL-C goal of <100 mg/dL (LDL-C of <70 mg/dL) is considered a therapeutic option. Blood Blood / Unknown 04/10/2022 1 1:11 AM EDT 04/10/2022 11:11 AM EDT us [facility] - BLOOD DRAW Final Result [facility] [address] [address], [facility] [address] [address] * HEPATITIS A,B,C PANEL (09/12/2019 10:32 AM EST) HEPATITIS B SURFACE ANTIBODY NEGATIVE NEGATIVE [facility] HEPATITIS B SURFACE ANTIGEN NEGATIVE NEGATIVE [facility] Comment: Over the counter supplements containing high doses of biotin may interfere with this assay. If interference is suspected, patients shoud be retested after refraining from biotin supplements for 72 hours. HEPATITIS C VIRUS DIAGNOSTIC NEGATIVE NEGATIVE [facility] HEPATITIS B CORE ANTIBODY NEGATIVE NEGATIVE [facility] HEPATITIS A ANTIBODY TOTAL NEGATIVE NEGATIVE [facility] Comment: Over the counter supplements containing high doses of biotin may interfere with this assay. If interference is suspected, patients shoud be retested after refraining from biotin supplements for 72 hours. Blood specimen (specimen) Blood / Unknown 09/12/2019 10:32 AM EST 09/12/2019 11:40 AM EST Narrative [facility] [place] - 09/12/2019 2:04 PM EST [employer], a member of [address] [address] Transit Survey Worker - Brenda Pearl MD PT ID [id number] ORD# [id number] us [facility] - BLOOD DRAW Edited Result - Final Performing Organization Address City/[facility]/ZIP Co de Phone Number [facility] [address], from Last 3 Months or Most Recently Relevant to Health Maintenance Insurance [place] [address] [facility] Medicaid Address: [facility] [id number] [place] [address]
== END 2025-03-15 12:13 | disposition home or self-care (01) ==
LOC: HO.NEURO 12:12
PROVIDERS: PCP Internal Medicine; Visit Provider Psychiatry & Neurology Neurology
DX: G62.9 Polyneuropathy, unspecified (principal); R20.0 Anesthesia of skin
CPT/HCPCS: 95885; 95913

== ENCOUNTER 2025-04-25 11:32 | Outpatient (AMB) | payer OTHER, SELFPAY ==
--- NOTE | 2025-04-25 11:37 | MHC.OFFVIS ---
Intake Visit Reasons: f/u after testing Allergies indomethacin (INDOMETHACIN) Allergy (Unknown, Unverified 05/17/20 18:) N/V , ABD PAIN influenza virus vaccine, specific (FLU VACCINE) Allergy (Unknown, Unverified 05/17/20 18:) HIVES - WITH THIS YRS FLU VACCINE Iodinated Contrast Media (Iodinated Contrast Media - IV Dye) Allergy (Unknown, Unverified 05/17/20 18:) HIVES morphine (MORPHINE) Allergy (Unknown, Unverified 05/17/20:) ARMS - NUMB - DIFF BREATHING, anaphylaxis Sulfa (Sulfonamide Antibiotics) (SULFA (SULFONAMIDE ANTIBIOTICS)) Allergy (Unknown, Unverified 05/17/20 18:) HIVES sulfur Allergy (Unknown, Verified 09/28/13 00:00) rash all over body influenza vaccine Allergy (Unknown, Uncoded 09/28/13 00:00) hives ivp dye Allergy (Unknown, Uncoded 09/28/13 00:00) hives Medication List - Last Reconciled 04/25/25 by Susannah Randle MD atorvastatin 80 mg PO DAILY diltiazem HCl CD 360 mg PO DAILY escitalopram oxalate 20 mg PO DAILY lisinopril 20 mg PO DAILY meloxicam 15 mg PO DAILY 30 days omeprazole 40 mg PO DAILY zolpidem 10 mg PO BEDTIME PRN HPI Comments Details: This is a 54-year-old man with a history of hyperlipidemia, hypertension, GERD and narcotic dependence on Suboxone, who was admitted to the [facility] on 10/04/24 with blockage of the colon, probably from constipation.? He had a colostomy and went into respiratory failure and ended up in the ICU for 3 weeks.? He was finally discharged from the hospital on 11/07/24 and could not walk and was extremely weak and had to learn to walk. He?also noted that he had numbness on the top of both feet, left more than right, and numbness in the right hand and the thumb, index finger and distal radial portion of the forearm.? He also had numbness in the left parietal area which has become less.? Remainder of the numbness still persists.? His strength has improved and now he can walk without any aids.? There is no previous history of any numbness in his feet or hands.? He's been diagnosed with diabetes in the last 2 years.? He is currently on no medication for it. He also has pain in his arthritic right knee and in the left foot> right. Meloxicam helps. Going back for surgery for his colosotomy bag. Numbness in legs and feet is unchanged. Right lateral thigh numb and sensitive and it hurts. Gabapentin did not agree with him and was too sedating. [facility] Medical History (Updated 04/25/25 @ 11:40 by Susannah Randle MD) Peripheral neuropathy Review of Systems Const Details: ?Sleep:? Difficulty getting to sleepadmits.? Difficulty maintaining sleepadmits.? Urge to move legsadmits.? Teeth grindingadmits.? Shouting or Kicking during sleepadmits.? Abnormal behavior during sleepdenies.? Excessive sleepdenies.? Snoringadmits.? Daytime sleepinessdenies. ???General/Constitutional:? Change in appetitedenies.? Chillsdenies.? Fatigueadmits.? Feverdenies.? Weight gaindenies.? Weight lossadmits. ???Ophthalmologic:? Blurred visiondenies.? Diminished visual acuitydenies. ???ENT:? Stuffinessdenies.? Decreased hearingdenies.? Dry mouthdenies.? Ear paindenies.? Nosebleeddenies.? Ringing in the earsdenies.? Sinus paindenies.? Sore throatdenies.? Swollen glandsdenies. ???Endocrine:? Cold intolerancedenies.? Excessive thirstadmits.? Frequent urinationdenies.? Heat intolerancedenies. ???Respiratory:? Shortness of breathadmits.? Chest paindenies.? Coughadmits. ???Breast:? Breast lumpdenies.? Nipple dischargedenies. ???Cardiovascular:? Chest pain at restdenies.? Chest pain with exertiondenies.? Claudicationdenies.? Dizzinessdenies.? Fluid accumulation in the legsdenies.? Irregular heartbeatdenies.? Palpitationsdenies. ???Gastrointestinal:? Abdominal paindenies.? Constipationadmits.? Diarrheaadmits.? Difficulty swallowingdenies.? Heartburnadmits.? Nauseadenies.? Rectal bleedingdenies. ???Hematology:? Easy bruisingadmits.? Prolonged bleedingdenies. ???Genitourinary:? Frequent urinationadmits.? Urgencydenies.? Incontinenceadmits.? Erectile Dysfunctionadmits. ???Musculoskeletal:? Neck paindenies.? Back painadmits.? Muscle achesadmits.? Painful jointsadmits.? Sciaticadenies.? Weaknessadmits. ???Podiatric:? Difficulty walkingdenies.? Foot numbnessdenies. ???Neurologic:? Difficulty swallowingdenies.? Balance difficultydenies.? Coordinationnormal.? Difficulty speakingdenies.? Dizzinessdenies.? Faintingdenies.? Gait abnormalitydenies.? Headachedenies.? Loss of strengthdenies.? Loss of use of extremitydenies.? Low back paindenies.? Memory lossdenies.? Seizuresdenies.? Ticsdenies.? Tingling/Numbnessbilateral lower extremities,?bilateral upper extremities.? Transient loss of visiondenies.? Tremordenies. ???Psychiatric:? Anxietyadmits.? Auditory/visual hallucinationsdenies.? Delusionsexcessive anger, agitation and aggression.? Depressed moodadmits.? Stressorsadmits.? Substance abusedenies.? Suicidal thoughtsdenies. Physical Exam Neuro Other: Neurological: Abnormal neurological findings:??areflexia in the lower extremities.? Blunting of pinprick sensation on the dorsum of the feet, left more than right.?Mental Status:??alert and oriented X 3,?Normal attention, orientation, memory and affect.?Cranial Nerves:??Pupils are equal, round and reactive to light. Fundoscopy shows normal disc bilaterally. External occular muscles are intact. Visual robles are full, no ptosis. Face is symmetrical, no facial weakness or droop. Facial sensations are normal. Tongue protrudes in midline. Palate elevates symmetrically. Shoulder shrugging is normal..?Motor Examination:??Normal muscle tone, bulk and strength,?No atrophy or fasciculations,?No drift of the extended upper extremities,?Deep tendon reflexes are 2+ absent ankle reflexes and knee jerks,?Plantars are flexor?.?Motor Strength:?Proximal Muscles (out of 5):5Distal Muscles (out of 5):5Neck Flexors (out of 5):5Neck Extensors (out of 5):5Deltoid (out of 5):5Biceps (out of 5):5Triceps (out of 5):5Serratus Anterior (out of 5):5Wrist Extensors (out of 5):5APB (out of 5):5Finger Spread (out of 5):5Ileopsoas (out of 5):5Quadriceps (out of 5):5Hamstrings (out of 5):5Tibialis Anterior (out of 5):5Peronei (out of 5):5EDB (out of 5):5Gastrocnemius (out of 5):5Straight Leg Raising:??90 degrees.?Sensory Exam:??as above, vibration and joint-position sensations?,?Rhomberg sign is absent.?Coordination:??no ataxia,?no titubation,?xrbvfz-dg-lnpi, bpyt-mfec-cujh test and rapid alternating movements were normal.?Gait Exam:??Within normal limits.?Cerebellar Signs:??Vfondz-lt-nipa and kina-ye-gsot is normal,?no dysdiadochokinesia?.?Extrapyramidal System:??No tremor, rigidity with normal facial expressions,?No bradykinesia, no bradyphrenia. Normal arm swing and posture. No propulsion or retropulsion.?Speech:??Normal,?no dysphasia or dysarthria..? Mini Mental Status Exam: Level of Consciousness:??Alert.?Orientation:??Knows correct year, month, date, day and season,?Knows correct city, county and state. Knows correct location and floor.?Registration:??Able to register 3 objects.?Attention:??Serial 7's performed accurately.?Recall:??Able to recall 3 out of 3 objects.?Language:??Normal spontaneous speech, fluency, repetition,naming, comprehension, reading and writing.?Total Score:??30/30.? General Examination: GENERAL APPEARANCE:??normal,?in no acute distress.?HEAD:??normocephalic,?atraumatic.?EYES:??sclera non-icteric,?conjunctiva clear.?EARS:??auditory canal clear,?tympanic membrane intact, clear.?NOSE:??no lesions.?ORAL CAVITY:??gums normal,?mucosa moist,?no lesions.?THROAT:??clear.?NECK/THYROID:??no cervical lymphadenopathy,?thyroid normal,?neck supple, full range of motion,?no carotid bruit.?SKIN:??no rashes,?no significant birthmarks.?HEART:??S1, S2 normal,?no murmurs.?LUNGS:??clear anteriorly and posteriorly.?CHEST:??no gross rib deformity,?clear to auscultation.?BACK:??normal exam of spine.?EXTREMITIES:??no edema.?PERIPHERAL PULSES:??normal.?PSYCH:??alert, oriented,?cognitive function intact,?cooperative with exam.? Results Reviewed Results Reviewed: 03/09/25 NCV/EMG: Impression: Normal motor and sensory nerve conduction velocities in the right upper extremity. 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 EMG of the left L4-S1 innervated muscles is consistent with distal chronic neuropathic changes. Assessment & Plan Assessment & Plan (1) Peripheral neuropathy: Comment: Probably a mild form of ICU neuropathy from prolonged ICU stay in Oct and October 2024 Code(s): G62.9 - Polyneuropathy, unspecified Category: Medical Plan continue current meds. Will call back after surgery if neuropathic pain continues and we will try him on Pregabalin 75mg. Medications: Refilled meloxicam 15 mg PO DAILY 30 tabs 2RF 30 days Coding Level of Care Code Est Pt Level 4 (85327) Diagnoses Peripheral neuropathy G62.9
--- OUTSIDE RECORDS SUMMARY | 2025-04-25 12:31 | XMS_ITS | Encounter Summary ---
Author Organization [facility] Address [address] [place] [address] Care Team Providers Care Master Steam Yacht Name Role Phone Indu Gonzalez MD Primary Care Provider [phone] Reason for Visit * Reason Onset Date Comments Prior Authorization 04/18/2025 05/04/25 Dr. Divina Parisi Encounter Details Date Type Department Care Team ([facility] st Contact Info) Description 04/18/2025 Telephone General Surgery - [place] [address] [facility] [address] [place] [address] Dinorah Parisi MD [address] [place] [phone] Social History Tobacco Use Types Packs/Day Years Used Date Smoking Tobacco: Former Cigarettes Alcohol Use Standard Drinks/Week Comments Never 0 [...] Record ed Within the last 3 months, russell grajeda many times did you visit the emergency [...] for your loved ones. For example, child nutrition manager or elderly care for an older adult? [...] Orientation Straight 10/03/2024 4: 41 PM EST documented as of this encounter Progress Notes * Jordyn Chaney - 04/18/2025 2:11 PM EDT He is having inpatient surgery with Dr. Dinorah Parisi on 05/04/25 at [facility]. He has [employer] for insurance. I went online and it is pending for CPT code 52076. documented in this encounter Plan of Treatment Upcoming Encounters Date Type Department Care Team (Late st Contact Info) Description 04/27/2025 11:30 AM EDT Pre-Admission Testing [facility] Pre-Admission Testing [address] [place] [phone] 05/04/2025 9:30 AM EDT Hospital Encounter [facility] Main OR [address] [place] [phone] Dinorah Parisi MD [address] [place] [address] 05/04/2025 9:30 AM EDT - 05/04/2025 11:30 AM EDT Surgery [facility] Main OR [address] [place] [phone] Dinorah Parisi MD [address] [place] [address] OPEN ILEOSTOMY CLOSURE [24213 (CPT )] 05/23/2025 11:30 AM EDT Office Visit General Surgery [facility] [address] [facility] [address] [place] [phone] Dinorah Parisi MD [address] [place] [address] 06/23/2025 8:30 AM EDT Office Visit Adult Medicine [address] [phone] Indu Gonzalez MD [address] [place] [address] Scheduled Procedures Name Priority Associated Diagnoses Date/Ti me ILEOSTOMY CLOSURE Perforated diverticulum of large intestine History of ileostomy 05/04/2025 9:30 AM EDT documented as of this encounter Visit Diagnoses Not on filedocumented in this encounter Additional Health Concerns Infection Onset Date Last Indicated Resolved Time ESBL 10/07/2024 10/17/2024 MDRO (other) 10/17/2024 10/17/2024 documented as of this encounter Care Teams Master [employer]acht Relationship Specialty Start Date End Date Indu Gonzalez MD [address] [place] [address] PCP - General Internal Medicine 12/28/23 documented as of this encounter
--- OUTSIDE RECORDS SUMMARY | 2025-04-25 12:31 | XMS_ITS ---
Author Organization [address] Address [address] [place] [address] Phone Care Team Providers Care Improvement Analyst Name Role Phone Indu Gonzalez MD Primary Care Provider [phone] [facility] - Social Service Status:Ongoing (Active) Start date:12/09/2024 Enrollment date:12/09/2024 Current support & services provided:Financial support - resource for identified risk factor Related program episode:Community Health Worker Program (Active) Overview Social Service service of Community Health Worker Program Case Team Name Relationship Phone Dena Joseph Community Health Worker(Responsi ble Staff) Continued Care and Services Coordination
--- OUTSIDE RECORDS SUMMARY | 2025-04-25 12:31 | XMS_ITS ---
Author Organization [address] Address [address] [place] [address] Phone Care Team Providers Care Flame Annealing Machine Operator Name Role Phone Indu Gonzalez MD Primary Care Provider [phone] Community Health Worker Program Status:Ongoing (Active) Start date:12/08/2024 Enrollment date:02/13/2025 Enrollment reason:Referred by Care Team Current support & services provided:Adult Related service episodes:[facility] - Food Insecurity (Closed), [facility] - Social Service (Active) Overview Community Health Worker Program Case Team Name Relationship Phone Dena Joseph Community Health Worker(Responsi ble Staff) Continued Care and Services Coordination
--- OUTSIDE RECORDS SUMMARY | 2025-04-25 12:31 | XMS_ITS | Clinical Summary ---
Author Organization [address] Address [address] [place] [address] Phone Care Team Providers Care Graphic Illustrator Name Role Phone Indu Gonzalez MD Primary Care Provider [phone] Allergies Active Allergy Reactions Criticality Noted Date Comments Influenza Virus Vaccine Tri-Split 5189-0785 06/14/2012 Influenza Virus Vaccine, Live Attenuated 10/08/2021 [...] 90 each 1 03/07/20 25 026 Active meloxicam (MOBIC) 15 mg tablet 04/05/20 25 Active Active Problems Problem Noted Date Diagnosed Date Perforated diverticulum of large intestine 04/04 History of ileostomy 04/04/2025 Primary osteoarthritis of right knee 02/11/2023 Benign prostatic hyperplasia with urinary freque ncy 04/10/2022 Anxiety disorder 04/10/2022 Type 2 diabetes mellitus wit hout complication, without long-term current use of insulin ([facility] V24, [facility] V28) 12/09/2017 Primary hypertension 07/29/2017 Hyperlipidemia 07/29/2017 Esophageal reflux 07/29/2017 Carpal tunnel syndrome 07/29/2017 Neuropathic pain 01/21/2017 Morbid obesity ([facility] V24, [facility] V28) 2016 Psychosis, bipolar affective ([facility] V24, [facility] V28) 01/21/2017 Fatty liver disease, nonalcoholic 08/20/2016 Nephrolithiasis 05/13/2016 Elevated AST (SGOT) 05/13/2016 Elevated alanine aminotransferase (ALT) level Opioid abuse, in remission ([facility] V24, [facility] V28) 04/26/2015 Lumbar radiculopathy 06/15/2014 Resolved Problems Problem Noted Date Diagnosed Date Resolved Date Hypoalbuminemia 10/10/2024 11/02/2024 Anasarca 10/10/2024 11/02/2024 SIRS with acute organ dysfun ction due to infectious process ([facility] V24, [facility] V28) 10/09/2024 11/02/2024 Acute respiratory failure wi th hypoxemia ([facility] V24, [facility] V28) 10/07/2024 11/02/2024 Endotracheally intubated 10/07/202412/2024 On mechanically assisted marv tilation ([facility] V24, [facility] V28) 10/07/2024 11/02/2024 Aspiration pneumonia of both upper lobes due to gastric secretions ([facility] V24, [facility] V28) 10/07/2024 11/02/2024 Hypotension (arterial) 10/07/202411/02 Fever 10/07/2024 11/02/2024 Poorly controlled type 2 david betes mellitus ([facility] V24, [facility] V28) 10/07/2024 11/02/2024 Colitis 10/04/2024 11/02/2024 Constipation 10/03/2024 11/02/2024 Focal active colitis 10/03/2024 025 Encounters Date Type Department Care Team Description 04/18/2025 Telephone General Surgery [facility] 175 [facility] [address] [place] [phone] Dinorah Pariis MD 04/13/2025 Telephone [facility] [address] [place] [phone] Dinorah Parisi MD 04/11/2025 2:30 PM EDT Office Visit General Surgery [place] [address] [phone] Dinorah Parisi MD Ileostomy in place ([facility] V24, [facility] V28) (Primary Dx); Large bowel obstruction ([facility] V24, [facility] V28) 04/03/[address] [phone] Haley Lewis MA 03/29/2025 8:53 AM EDT - 03/29/2025 11:59 PM EDT Hospital Encounter [facility] Xray [address] [place] [phone] ([facility] V24, [facility] V28); Large bowel obstruction ([facility] V24, [facility] V28) Discharge Disposition: Home or Self Care 03/08/2025 7:40 PM EDT - 03/08/2025 11:34 PM EDT Emergency [facility] Emergency [address] [place] [phone] Iván Calhoun MD Dark red stool (Primary Dx) Discharge Disposition: Home or Self Care 03/07/2025 2:00 PM EDT Office Visit Adult [address] [phone] Indu Gonzalez MD Type 2 diabetes mellitus without complication, without long-term current use of insulin ([facility] V24, [facility] V28) (Primary Dx); Primary hypertension; Mixed hyperlipidemia 03/07/2025 Telephone Adult [address] [phone] Indu Gonzalez MD 03/02/2025 9:00 AM EDT Clinical Support [address] [phone] Danielle oByd RN Ileostomy in place ([facility] V24, [facility] V28) (Primary Dx) 03/01/2025 Telephone Adult Medicine [address] [phone] Indu Gonzalez MD 02/16/2025 10:00 AM EDT Clinical Support General Surgery [address] [phone] Danielle Boyd, STEPHANIE Ileostomy in place (CMS/HCC V24, [facility] V28) (Primary Dx) 02/16/2025 Telephone Adult Medicine [address] [phone] Indu Gonzalez MD 02/16/2025 Telephone General Surgery [address] [phone] Dinorah Parisi MD 02/13/2025 Telephone [facility] Health Worker Program [address] [place] [phone] Margot Melo 02/09/2025 Telephone [facility] [address] [place] [phone] Margot Melo 02/08/2025 Telephone General [address] [phone] Haley Lewis MA 02/06/2025 9:54 AM EDT - 02/06/2025 11:59 PM EDT Hospital Encounter Radiology Department - [address] [phone] Renal cyst Discharge Disposition: Home or Self Care 01/25/2025 Telephone Adult Medicine [address] [phone] Jerald Poole PA 01/24/2025 10:00 AM EDT Office Visit Adult [address] [phone] Jerald Poole PA Type 2 diabetes mellitus without complication, without long-term current use of insulin (CMS/HCC V24, [facility] V28) (Primary Dx); Primary hypertension 01/24/2025 Telephone Adult Medicine [facility] [place], [place] [address] [place] [phone] Indu Gonzalez MD 01/24/2025 Telephone Orthopedic Surgery [place] [address] [place] [phone] Kristine Melara NP from Last 3 Months Immunizations Name Administration [...] (gastroesophageal reflux disease) Depression Insomnia Opioid abuse ([facility] V24, [facility] V28) Diabetes mellitus ([facility] V24, [facility] V28) Hypertension Hyperlipidemia GI (gastrointestinal bleed) Shortness of breath Sleep apnea Family History Medical History Relation Name Comments [...] for your loved ones. For example, child health associate or elderly care for an older adult? [...] Sign Reading Time Taken Comments Blood Pressure 144/80 04/11/2025 2:36 PM EDT Pulse 79 04/11/2025 2:36 PM EDT Temperature 36.8 C (98.2 F) 03/08/2025 7:43 PM EDT Respiratory Rate 18 03/08/2025 10:30 PM EDT Oxygen Saturation 95% 03/08/2025 10:30 PM EDT Inhaled Oxygen Concentration - - Weight 123 kg (271 lb) 04/17/2025 1:00 PM EDT Height 172.7 cm (5' 8 ) 04/17/2025 1:00 PM EDT Body Mass Index 41.21 04/17/2025 1:00 PM EDT Plan of Treatment Upcoming Encounters Date Type Department Care Team (Late st Contact Info) Description 04/27/2025 11:30 AM EDT Pre-Admission Testing [facility] Pre-Admission Testing [address] [place] [phone] 05/04/2025 9:30 AM EDT Hospital Encounter [facility] Main OR [address] [place] [phone] Dinorah Parisi MD [address] [place] [phone] 05/04/2025 9:30 AM EDT - 05/04/2025 11:30 AM EDT Surgery [facility] OR [address] [place] [phone] Dinorah Parisi MD [address] [place] [address] OPEN ILEOSTOMY CLOSURE [27465 (CPT )] 05/23/2025 11:30 AM EDT Office Visit General Surgery [facility] [address] [phone] Dinorah Parisi MD [address] [place] [phone] 06/23/2025 8:30 AM EDT Office Visit Adult Medicine [address] [phone] Indu Gonzalez MD [address] [place] [phone] Scheduled Procedures Name Priority Associated Diagnoses Date/Ti me ILEOSTOMY CLOSURE Perforated diverticulum of large intestine History of ileostomy 05/04/2025 9:30 AM EDT Health Maintenance Due Date Last Done Comments [...] Albumin-Creatinine Ratio (uACR) 08/14/2022 COVID-19 Vaccine ( - season) 2024 09/04/2021, 12/31/2020 Depression Screening 08/31/2024 12/18/2023 Influenza Vaccine (#1) 2025 06/14/2012 Diabetes: [...] Procedure Name Priority Date/Time Associated Diagnosis Comments XR BARIUM ENEMA SINGLE CONTRAST Routine 03/29/2025 10:03 AM EDT Ileostomy in place (CMS/HCC V24, [facility] V28) Large bowel obstruction ([facility] V24, [facility] V28) CBC WITH AUTO DIFFERENTIAL STAT 03/08/2025 8:04 PM EDT COMPREHENSIVE METABOLIC PANEL STAT 03/08/2025 8:04 PM EDT CBC AND DIFFERENTIAL STAT 03/08/2025 8:04 PM EDT US RETROPERITONEAL COMPLETE Routine 02/06/2025 10:21 AM EDT Renal cyst POC GLUCOSE Routine 01/24/2025 10:18 AM EDT Type 2 diabetes mellitus without complication, without long-term current use of insulin ([facility] V24, [facility] V28) HEMOGLOBIN A1C Routine 12/08/2024 10:45 AM EDT Type 2 diabetes mellitus without complication, without long-term current use of insulin ([facility] V24, CMS/HCC V28) LIPID PANEL WITH REFLEX TO DIRECT LDL Routine 12/08/2024 10:45 AM EDT Type 2 diabetes mellitus without complication, without long-term current use of insulin ([facility] V24, [facility] V28) DEPRESSION SCREENING Routine 12/18/2023 HIV SCREENING Routine 04/10/2022 from Last 3 Months or Most Recently Relevant to Health Maintenance Results * XR Barium Enema Single Contrast (03/29/2025 10:03 AM EDT) Anatomical Region Laterality Modality Body Radiographic Nimisha ging 03/29/2025 10:2 2 AM EDT Impressions 03/29/2025 11:12 AM EDT 1. Widely patent ileocolonic (sigmoid to terminal ileum) anastomosis without evidence of contrast leak, extravasation or obstruction. -------- FINAL REPORT -------- Dictated By: Anamaria Sheehan Dictated Date: 03/29/2025 10:22 ET Assigned Physician: Pete Turk Reviewed and Electronically Signed By: Pete Turk Signed Date: 03/29/2025 11:12 ET Workstation ID: [id number] Transcribed By: Self Edit Transcribed Date: 03/29/2025 10:34 ET Resident/PA/PLASTIC WELDER: Anamaria Sheehan Narrative 03/29/2025 11:12 AM EDT FINDINGS: Single contrast barium enema performed. COMPARISON: Multiple prior images reviewed HISTORY: Patient is a 54-year-old male with history of subtotal colectomy status post large bowel obstruction with terminal ileum to sigmoid colon anastomosis and diverting ileostomy October 2024. BOARD OF EDUCATION SECRETARY: AP supine abdominal radiographs demonstrate a paucity of air. There is a right mid abdomen ostomy. There are moderate bony degenerative changes noted at the thoracolumbar spine. FINDINGS: Water-soluble Gastrografin was administered to the patient rectally under fluoroscopic control. Enema tube was inserted and retention balloon inflated to patient comfort. Gastrografin suspension was then instilled in retrograde fashion with free flow of contrast from the rectum through the anastomosis of the terminal ileum to the sigmoid colon. There is no stricture, focal mass lesion, obstruction or other mucosal irregularity identified. In particular, the anastomosis appears widely patent. There is no extraluminal contrast. DAP: 153.08 Gycm^2 Procedure Note Pete Turk MD - 03/29/2025 FINDINGS: Single contrast barium enema performed. COMPARISON: Multiple prior images reviewed HISTORY: Patient is a 54-year-old male with history of subtotal colectomystatus post large bowel obstruction with terminal ileum to sigmoid colonanastomosis and diverting ileostomy October 2024. BOARD OF EDUCATION SECRETARY: AP supine abdominal radiographs demonstrate a paucity of air. Thereis a right mid abdomen ostomy. There are moderate bony degenerativechanges noted at the thoracolumbar spine. FINDINGS: Water-soluble Gastrografin was administered to the patientrectally under fluoroscopic control. Enema tube was inserted and retention balloon inflated to patient comfort.Gastrografin suspension was then instilled in retrograde fashion with freeflow of contrast from the rectum through the anastomosis of the terminalileum to the sigmoid colon. There is no stricture, focal mass lesion,obstruction or other mucosal irregularity identified. In particular, theanastomosis appears widely patent. There is no extraluminal contrast. DAP: 153.08 Gycm^2 IMPRESSION: 1. Widely patent ileocolonic (sigmoid to terminal ileum) anastomosiswithout evidence of contrast leak, extravasation or obstruction. -------- FINAL REPORT -------- Dictated By: Anamaria Sheehan Dictated Date: 03/29/2025 10:22 ET Assigned Physician: Pete Turk Reviewed and Electronically Signed By: Pete Turk Signed Date: 03/29/2025 11:12 ET Workstation ID: [id number] Transcribed By: Self Edit Transcribed Date: 03/29/2025 10:34 ET Resident/PA/PLASTIC WELDER: Anamaria Sheehan us Dinorah Parisi MD IMG FLUOROSCOPY PROCEDU RES Final Result * (ABNORMAL) CBC auto differential (03/08/2025 8:04 PM EDT) WBC 5.7 4.8 - 10.8 K/mcL LAB HEMETOLOGY METHOD 03/08/2025 9:00 PM EDT [facility] RBC 3.60(L) 4.50 - 5.50 M/mcL LAB HEMETOLOGY METHOD 03/08/2025 9:00 PM EDT [facility] Hemoglobin 11.1(L) 13.5 - 17.5 g/dL LAB HEMETOLOGY METHOD 03/08/2025 9:00 PM [facility] Hematocrit 32.1(L) 42.0 - 54.0 % LAB HEMETOLOGY METHOD 03/08/2025 9:00 PM [facility] MCV 90.4 79.0 - 98.0 FL LAB HEMETOLOGY METHOD 03/08/2025 9:00 PM [facility] MCH 31.3 27.0 - 32.0 pcg LAB HEMETOLOGY METHOD 03/08/2025 9:00 PM [facility] MCHC 34.6 32.0 - 37.0 g/dL LAB HEMETOLOGY METHOD 03/08/2025 9:00 PM [facility] RDW 12.8 11.0 - 15.0 % LAB HEMETOLOGY METHOD 03/08/2025 9:00 PM [facility] Platelets 288 130 - 400 K/mcL LAB HEMETOLOGY METHOD 03/08/2025 9:00 PM [facility] MPV 9.7 7.0 - 11.0 FL LAB HEMETOLOGY METHOD 03/08/2025 9:00 PM [facility] NRBC 0.0 <1.0 % LAB HEMETOLOGY METHOD 03/08/2025 9:00 PM [facility] NRBC Absolute 0.00 <0.10 K/mcL LAB HEMETOLOGY METHOD 03/08/2025 9:00 PM [facility] Neutrophils Relative 53.2 % LAB HEMETOLOGY METHOD 03/08/2025 9:00 PM [facility] Lymphocytes Relative 34.0 % LAB HEMETOLOGY METHOD 03/08/2025 9:00 PM [facility] Monocytes Relative 9.9 % LAB HEMETOLOGY METHOD 03/08/2025 9:00 PM [facility] Eosinophils Relative 1.8 % LAB HEMETOLOGY METHOD 03/08/2025 9:00 PM EDT [facility] Basophils Relative 0.7 % LAB HEMETOLOGY METHOD 03/08/2025 9:00 PM [facility] Immature Granulocytes Relative 0.4 % LAB HEMETOLOGY METHOD 03/08/2025 9:00 PM EDT [facility] Neutrophils Absolute 3.03 1.50 - 7.00 K/mcL LAB HEMETOLOGY METHOD 03/08/2025 9:00 PM EDT [facility] Lymphocytes Absolute 1.93 1.00 - 5.00 K/mcL LAB HEMETOLOGY [facility] Monocytes Absolute 0.56 0.20 - 1.00 K/mcL LAB HEMETOLOGY METHOD 03/08/2025 9:00 PM EDT [facility] Eosinophils Absolute 0.10 0.00 - 0.50 K/mcL LAB HEMETOLOGY METHOD 03/08/2025 9:00 PM EDT [facility] Basophils Absolute 0.04 0.00 - 0.20 K/mcL LAB HEMETOLOGY METHOD [facility] Immature Granulocytes Absolute 0.02 0.00 - 0.03 K/mcL LAB HEMETOLOGY METHOD 03/08/2025 9:00 PM EDT [facility] Blood Venous blood specimen / Unknown Venipuncture / Unknown 03/08/2025 8:04 PM EDT 03/08/2025 8:52 PM EDT us Iván Patel MD LAB BLOOD ORDERABLES Final Result [facility] [address] [place] [address], * (ABNORMAL) Comprehensive metabolic panel (03/08/2025 8:04 PM EDT) [facility] Signature Sodium 137 133 - 145 mmol/L LAB CHEMISTRY METHOD 03/08/2025 9:32 PM [facility] Potassium 4.7 3.5 - 5.5 mmol/L LAB CHEMISTRY METHOD 03/08/2025 9:32 PM [facility] Chloride 103 96 - 110 mmol/L LAB CHEMISTRY METHOD 03/08/2025 9:32 PM [facility] CO2 29 21 - 32 mmol/L LAB CHEMISTRY METHOD 03/08/2025 9:32 PM [facility] Anion Gap 5 3 - 11 LAB CHEMISTRY METHOD 03/08/2025 9:32 PM [facility] Glucose 193(H) 70 - 100 mg/dL LAB CHEMISTRY METHOD 03/08/2025 9:32 PM [facility] BUN 23 5 - 25 mg/dL LAB CHEMISTRY METHOD 03/08/2025 9:32 PM [facility] Creatinine 0.98 0.70 - 1.30 mg/dL LAB CHEMISTRY METHOD 03/08/2025 9:32 PM [facility] eGFR 91 >=60 mL/min/1. 73m2 LAB CHEMISTRY METHOD 03/08/2025 9:32 PM [facility] Comment:Calculation based on the Chronic Kidney Disease Epidemiology Collaboration (CKD-EPI) equation refit without adjustment for race. BUN/Creatinine Ratio 23.5 LAB CHEMISTRY METHOD 03/08/2025 9:32 PM [facility] Calcium 9.2 8.5 - 10.5 mg/dL LAB CHEMISTRY METHOD 03/08/2025 9:32 PM [facility] AST (SGOT) 20 10 - 42 unit/L LAB CHEMISTRY METHOD 03/08/2025 9:32 PM [facility] ALT (SGPT) 32 10 - 60 unit/L LAB CHEMISTRY METHOD 03/08/2025 9:32 PM EDT [facility] Alkaline Phosphatase 97 42 - 121 unit/L LAB CHEMISTRY METHOD 03/08/2025 9:32 PM EDT [facility] Total Protein 7.1 6.0 - 8.0 g/dL LAB CHEMISTRY METHOD 03/08/2025 9:32 PM EDT [facility] Albumin 3.7 3.2 - 5.0 g/dL LAB CHEMISTRY METHOD 03/08/2025 9:32 PM EDT [facility] Total Bilirubin 0.5 0.0 - 1.4 mg/dL LAB CHEMISTRY METHOD 03/08/2025 9:32 PM EDT [facility] Blood Venous blood specimen / Unknown Venipuncture / Unknown 03/08/2025 8:04 PM EDT 03/08/2025 8:52 PM EDT us Iván Patel MD LAB BLOOD ORDERABLES Final Result [facility] [address] [place] [address], [place] [phone] * US Retroperitoneal Complete (02/06/2025 10:21 AM [...] Signed Date: 02/06/2025 11:18 ET Workstation ID: [id number] Transcribed By: Self Edit Transcribed Date: 02/06/2025 [...] Signed Date: 02/06/2025 11:18 ET Workstation ID: [id number] Transcribed By: Self Edit Transcribed Date: 02/06/2025 11:15 ET us Indu Gonzalez MD [facility] [place] PROCEDURES Final Result * (ABNORMAL) POC glucose manually resulted (01/24/2025 10:18 AM EDT) Glucose POC 180 mg/dL Blood Capillary blood specimen / Unknown 01/24/2025 10:18 AM EDT Jerald KNAPP POINT OF CARE TEST ENTER/EDIT ORDERABLES Final Result * Lipid panel with reflex to direct LDL (12/08/2024 10:45 AM EDT) Cholesterol 84 0 - 200 mg/dL LAB CHEMISTRY METHOD 12/08/2024 2:56 PM EDT [facility] Triglycerides 127 0 - 150 mg/dL LAB CHEMISTRY METHOD 12/08/2024 2:56 PM EDT [facility] HDL 44 >=40 mg/dL LAB CHEMISTRY METHOD 12/08/2024 2:56 PM EDT [facility] LDL Calculated 15 0 - 100 mg/dL LAB CHEMISTRY METHOD 12/08/2024 2:56 PM EDT [facility] VLDL Cholesterol Dago 25.4 mg/dL LAB CHEMISTRY METHOD 12/08/2024 2:56 PM EDT [facility] Non HDL Chol. (LDL+VLDL) 40 <145 mg/dL LAB CHEMISTRY METHOD 12/08/2024 2:56 PM EDT [facility] Chol/HDL Ratio 1.9 0.0 - 4.4 LAB CHEMISTRY METHOD 12/08/2024 2:56 PM EDT [facility] Blood Venous blood specimen / Unknown Venipuncture / Unknown 12/08/2024 10:45 AM EDT 12/08/2024 10:45 AM EDT us Indu Gonzalez MD LAB BLOOD ORDERABLES Final Resul t [facility] [address] [place] [address], * (ABNORMAL) Hemoglobin A1c (12/08/2024 10:45 AM EDT) Hemoglobin A1C 7.5(H) <6.5 % LAB CHEMISTRY METHOD 12/09/2024 12:36 PM EDT [facility] Mean Bld Glu Estim. 169 mg/dL LAB CHEMISTRY METHOD 12/09/2024 12:36 PM EDT [facility] Blood Venous blood specimen / Unknown Venipuncture / Unknown 12/08/2024 10:45 AM EDT 12/08/2024 10:45 AM EDT Indu Gonzalez MD LAB BLOOD ORDERABLES Final Resul t [facility] [address] [place] [address], [place] [phone] * Depression Screening (12/18/2023) Depression Screening abstracted Amelia Luque MD HEALTH MAINTENANCE Final Result * HIV Screening (04/10/2022) Pathologist [facility] HIV Screening abstracted Historical [facility] MAINTENANCE Final Result from Last 3 Months or Most Recently Relevant to Health Maintenance Additional Health Concerns Infection Onset Date Last Indicated ESBL 10/07/2024 10/17/2024 MDRO (other) 10/17/2024 10/17/2024 Insurance [facility] Advance Directives Documents on File Type Date Recorded Patient Jigsawyer Expl anation Advance Directives and Livin g Will 10/27/2024 8:28 AM Micah Cobb PROXY * Full Code - Default (Latest [...] Agents on File Name Relationship Healthcare Agent [facility] Communication Micah Cobb [facility] Health Care Agent Care Teams Graphic Illustrator Relationship Specialty Start Date End Date Indu Gonzalez MD [address] [place] [id number] PCP - General Internal Medicine 12/28/23
--- OUTSIDE RECORDS SUMMARY | 2025-04-25 12:31 | XMS_ITS | Clinical Summary ---
Author Organization [facility] Address [address] [place] [address] Care Team Providers Care Die Barber Name Role Phone Unavailable Primary Care Provider [...] Uncontrolled type 2 diabetes mellitus with hyperglycemia ([facility]) check sugar daily. Dx; E11.65 100 Each 11 04/23/20 22 Active gibran.stocking, thigh,reg,medIndi cations:Edema, unspecified type Use one pair daily during daytime hours. Compression goal 15-20 mmHg 14 Each 05/20/20 22 Active metFORMIN (GLUCOPHAGE) 1,000 mg tabletIndications :Type 2 diabetes mellitus without complication, without long-term current use of insulin ([facility]) TAKE 1 TABLET BY MOUTH TWICE DAILY [...] complication, without long-term current use of insulin ([facility]) Take 1 Tablet by mouth 2 (two) times daily with a meal 60 Tablet 4 08/20/20 Active nicotine (NICOTROL) 10 mg inhalerIndication s:Smoking INHALE 1 PUFF INTO THE LUNGS EVERY 2 HOURS FOR UP TO 42 DAYS NEEDED FOR SMOKING CESSATION 168 Each 4 08/20/20 Active glipiZIDE (GLUCOTROL) 5 mg tabletIndications :Uncontrolled type 2 diabetes mellitus with hyperglycemia ([facility]) TAKE 1 TABLET BY MOUTH TWICE DAILY FOR DIABETES 60 Tablet 4 08/20/20 Active lisinopriL 40 mg tabletIndications :Essential hypertension Take 1 Tablet by mouth once daily 60 Tablet 4 08/20/20 Active fluoride, sodium, (DENTAGEL) 1.1 % gelIndications:De ntal caries USE DIRECTED IN MOUTH EVERY DAY 56 g 4 08/20/20 Active blood sugar diagnostic stripsIndications :Uncontrolled type 2 diabetes mellitus with hyperglycemia ([facility]) Freestyle lite teststrips, check sugar daily. Dx; E11.65 100 Each 08/20/20 Active blood-glucose meter monitoring kitIndications:Un controlled type 2 diabetes mellitus with hyperglycemia ([facility]) Freestyle lite glucometer, check sugar daily. Dx; E11.65 1 Each 08/20/20 Active lancetsIndication s:Uncontrolled type 2 diabetes mellitus with hyperglycemia ([facility]) Freestyle lite lancets, check sugar daily. Dx; [...] complication, without long-term current use of insulin ([facility]) TAKE 1 TABLET BY MOUTH TWICE DAILY [...] complication, without long-term current use of insulin ([facility]),Essentia l hypertension,Hype rcholesteremia TAKE 1 TABLET BY [...] vaccination 04/10/2022 Edema 04/10/2022 Uncomplicated opioid dependence ([facility]) 09/12/2019 Primary hypertension 09/12/2019 Ingrowing left great toenail 12/09/2017 Foot pain 12/09/2017 Pain in both feet 12/09/2017 Plantar fasciitis 12/09/2017 Type 2 diabetes mellitus ([facility]) 018 Immunizations Immunization Administration Dates Next Due [...] Cessation Counseling (#1) 11/16/2023 04/28/2022, 04/10/2022, 12/31/2021 [id number] ( season) 2024 022, 12/31/2020 Alcohol and [...] hyperglycemia, without long-term current use of insulin ([facility]) HIV 1/2 AG & AB W/RFLX (4TH GEN) Routine 04/10/2022 11:11 AM EDT Routine adult health maintenance LIPID PANEL Routine 04/10/2022 11:11 AM EDT Type 2 diabetes mellitus without complication, without long-term current use of insulin ([facility]) HEPATITIS A,B,C PANEL Routine 09/12/2019 10:32 AM EST Routine adult health maintenance from Last 3 Months or Most Recently Relevant to Health Maintenance Results * (ABNORMAL) HGBA1C W/MPG (05/20/2022 10:03 AM EDT) HEMOGLOBIN A1C 9.0(H) <5.7 % of total Hgb [facility] Comment: For someone without known diabetes, a [...] children. MEAN PLASMA GLUCOSE 243 mg/dL (calc) [facility] Blood Blood / Unknown 05/20/2022 1 0:03 AM EDT 05/20/2022 10:04 AM EDT [facility] - BLOOD DRAW Final Result [facility] [address] [address], [facility] [address] [address] * HIV 1/2 AG & AB W/RFLX (4TH GEN) (04/10/2022 11:11 AM EDT) HIV AG/AB, 4TH GEN NON-REAC TIVE NON-REAC TIVE [facility] Comment: HIV-1 antigen and HIV-1/HIV-2 antibodies were [...] purpose. For additional information please refer to http://[employer] Net[employer].ABPathfinder/faq/YMO656 (This link is being provided for informational/ educational purposes only.) The performance of this assay has not been clinically validated in patients less than 2 years old. Blood Blood / Unknown 04/10/2022 1 1:11 AM EDT 04/10/2022 11:11 AM EDT [facility] - BLOOD DRAW Final Result [facility] [address] [address], [facility] [address] [address] * (ABNORMAL) LIPID PANEL (04/10/2022 11:11 AM EDT) CHOLESTEROL, TOTAL 167 <200 mg/dL [facility] HDL CHOLESTEROL 40 > OR = 40 mg/dL [facility] TRIGLYCERIDES 99 <150 mg/dL [facility] LDL-CHOLESTEROL 108(H) 99 mg/dL (calc) [facility] Comment: Reference range: <100 Desirable range <100 mg/dL for primary prevention; <70 mg/dL for patients with CHD or diabetic patients with > or = 2 CHD risk factors. LDL-C is now calculated using the Christopher-Cristina calculation, which is a validated novel method providing better accuracy than the Friedewald equation in the estimation of LDL-C. Christopher SS et al. VERN. 2013;310(19): 1753-4469 (http://[employer] Net[employer]x.The Simple/faq/FOI220) CHOL/HDLC RATIO 4.2 <5.0 (calc) [facility] NON-HDL CHOLESTEROL 127 <130 mg/dL (calc) [facility] Comment: For patients with diabetes plus 1 major ASCVD risk factor, treating to a non-HDL-C goal of <100 mg/dL (LDL-C of <70 mg/dL) is considered a therapeutic option. Blood Blood / Unknown 04/10/2022 1 1:11 AM EDT 04/10/2022 11:11 AM EDT us [facility] - BLOOD DRAW Final Result [facility] [address] [address], [facility] [address] [address] * HEPATITIS A,B,C PANEL (09/12/2019 10:32 AM EST) HEPATITIS B SURFACE ANTIBODY NEGATIVE NEGATIVE [facility] HEPATITIS B SURFACE ANTIGEN NEGATIVE NEGATIVE [facility] Comment: Over the counter supplements containing high doses of biotin may interfere with this assay. If interference is suspected, patients shoud be retested after refraining from biotin supplements for 72 hours. HEPATITIS C VIRUS DIAGNOSTIC NEGATIVE NEGATIVE [facility] HEPATITIS B CORE ANTIBODY NEGATIVE NEGATIVE [facility] HEPATITIS A ANTIBODY TOTAL NEGATIVE NEGATIVE [facility] Comment: Over the counter supplements containing high doses of biotin may interfere with this assay. If interference is suspected, patients shoud be retested after refraining from biotin supplements for 72 hours. Blood specimen (specimen) Blood / Unknown 09/12/2019 10:32 AM EST 09/12/2019 11:40 AM EST Narrative [facility] - 09/12/2019 2:04 PM EST [employer], a member of [address] [address] [place] - Brenda Pearl MD PT ID [id number] ORD# [id number] us [facility] - BLOOD DRAW Edited Result - Final Performing Organization Address City/[facility]/ZIP Co de Phone Number [employer] [address], from Last 3 Months or Most Recently Relevant to Health Maintenance Insurance [place] MEDICA[place] [address] ACO
== END 2025-04-25 11:51 | disposition home or self-care (01) ==
LOC: HO.HSM 11:32
PROVIDERS: PCP Internal Medicine; Visit Provider Psychiatry & Neurology Neurology
DX: G62.9 Polyneuropathy, unspecified (principal)
CPT/HCPCS: 99214

== ENCOUNTER → 2025-04-25 11:32 | Outpatient (BNVA) | payer OTHER, SELFPAY | PROVIDERS: PCP Internal Medicine; Visit Provider Psychiatry & Neurology Neurology | DX: G62.9 Polyneuropathy, unspecified (principal) | CPT/HCPCS: 99212 ==

== ENCOUNTER 2025-08-09 08:35 | Outpatient (AMB) | payer OTHER, SELFPAY ==
--- NOTE | 2025-08-09 09:10 | MHC.OFFVIS ---
Intake Visit Reasons: 3 months Allergies indomethacin (INDOMETHACIN) Allergy (Unknown, Unverified 05/17/20 18:) N/V , ABD PAIN influenza virus vaccine, specific (FLU VACCINE) Allergy (Unknown, Unverified 05/17/20 18:) HIVES - WITH THIS YRS FLU VACCINE Iodinated Contrast Media (Iodinated Contrast Media - IV Dye) Allergy (Unknown, Unverified 05/17/20 18:) HIVES morphine (MORPHINE) Allergy (Unknown, Unverified 05/17/20 18:) ARMS - NUMB - DIFF BREATHING, anaphylaxis Sulfa (Sulfonamide Antibiotics) (SULFA (SULFONAMIDE ANTIBIOTICS)) Allergy (Unknown, Unverified 05/17/20 18:) HIVES sulfur Allergy (Unknown, Verified 09/28/13 00:00) rash all over body influenza vaccine Allergy (Unknown, Uncoded 09/28/13 00:00) hives ivp dye Allergy (Unknown, Uncoded 09/28/13 00:00) hives Medication List - Last Reconciled 08/09/25 by Susannah Randle MD atorvastatin 80 mg PO DAILY diltiazem HCl CD 360 mg PO DAILY escitalopram oxalate 20 mg PO DAILY hydrochlorothiazide 12.5 mg PO DAILY lisinopril 40 mg PO DAILY meloxicam 15 mg PO DAILY 30 days metformin 500 mg PO BID omeprazole 40 mg PO DAILY zolpidem 10 mg PO BEDTIME PRN HPI Comments Details: This is a 54-year-old man with a history of hyperlipidemia, hypertension, GERD and narcotic dependence on Suboxone, who was admitted to the [facility] on 10/04/24 with blockage of the colon, probably from constipation.? He had a colostomy and went into respiratory failure and ended up in the ICU for 3 weeks.? He was finally discharged from the hospital on 11/07/24 and could not walk and was extremely weak and had to learn to walk. He?also noted that he had numbness on the top of both feet, left more than right, and numbness in the right hand and the thumb, index finger and distal radial portion of the forearm.? He also had numbness in the left parietal area which has become less.? Remainder of the numbness still persists.? His strength has improved and now he can walk without any aids.? There is no previous history of any numbness in his feet or hands.? He's been diagnosed with diabetes in the last 2 years.? He is currently on no medication for it. He also has pain in his arthritic right knee and in the left foot> right. Meloxicam 15mg helps. He had surgery for reversal colostomy on 2024 and was discharged on 05/05/25 . Then slept for 3 days and had C .diff diarrhea and was hospitalized for 6 days. Numbness in legs and feet is unchanged. Right lateral thigh numb and sensitive and it hurts. Gabapentin did not agree with him and was too sedating. [facility] Medical History (Updated 04/25/25 @ 11:40 by Susannah Randle MD) Peripheral neuropathy Review of Systems Const Details: ?Sleep:? Difficulty getting to sleepadmits.? Difficulty maintaining sleepadmits.? Urge to move legsadmits.? Teeth grindingadmits.? Shouting or Kicking during sleepadmits.? Abnormal behavior during sleepdenies.? Excessive sleepdenies.? Snoringadmits.? Daytime sleepinessdenies. ???General/Constitutional:? Change in appetitedenies.? Chillsdenies.? Fatigueadmits.? Feverdenies.? Weight gaindenies.? Weight lossadmits. ???Ophthalmologic:? Blurred visiondenies.? Diminished visual acuitydenies. ???ENT:? Stuffinessdenies.? Decreased hearingdenies.? Dry mouthdenies.? Ear paindenies.? Nosebleeddenies.? Ringing in the earsdenies.? Sinus paindenies.? Sore throatdenies.? Swollen glandsdenies. ???Endocrine:? Cold intolerancedenies.? Excessive thirstadmits.? Frequent urinationdenies.? Heat intolerancedenies. ???Respiratory:? Shortness of breathadmits.? Chest paindenies.? Coughadmits. ???Breast:? Breast lumpdenies.? Nipple dischargedenies. ???Cardiovascular:? Chest pain at restdenies.? Chest pain with exertiondenies.? Claudicationdenies.? Dizzinessdenies.? Fluid accumulation in the legsdenies.? Irregular heartbeatdenies.? Palpitationsdenies. ???Gastrointestinal:? Abdominal paindenies.? Constipationadmits.? Diarrheaadmits.? Difficulty swallowingdenies.? Heartburnadmits.? Nauseadenies.? Rectal bleedingdenies. ???Hematology:? Easy bruisingadmits.? Prolonged bleedingdenies. ???Genitourinary:? Frequent urinationadmits.? Urgencydenies.? Incontinenceadmits.? Erectile Dysfunctionadmits. ???Musculoskeletal:? Neck paindenies.? Back painadmits.? Muscle achesadmits.? Painful jointsadmits.? Sciaticadenies.? Weaknessadmits. ???Podiatric:? Difficulty walkingdenies.? Foot numbnessdenies. ???Neurologic:? Difficulty swallowingdenies.? Balance difficultydenies.? Coordinationnormal.? Difficulty speakingdenies.? Dizzinessdenies.? Faintingdenies.? Gait abnormalitydenies.? Headachedenies.? Loss of strengthdenies.? Loss of use of extremitydenies.? Low back paindenies.? Memory lossdenies.? Seizuresdenies.? Ticsdenies.? Tingling/Numbnessbilateral lower extremities,?bilateral upper extremities.? Transient loss of visiondenies.? Tremordenies. ???Psychiatric:? Anxietyadmits.? Auditory/visual hallucinationsdenies.? Delusionsexcessive anger, agitation and aggression.? Depressed moodadmits.? Stressorsadmits.? Substance abusedenies.? Suicidal thoughtsdenies. Physical Exam Neuro Other: Neurological: Abnormal neurological findings:??areflexia in the lower extremities.? Blunting of pinprick sensation on the dorsum of the feet, left more than right.?Mental Status:??alert and oriented X 3,?Normal attention, orientation, memory and affect.?Cranial Nerves:??Pupils are equal, round and reactive to light. Fundoscopy shows normal disc bilaterally. External occular muscles are intact. Visual robles are full, no ptosis. Face is symmetrical, no facial weakness or droop. Facial sensations are normal. Tongue protrudes in midline. Palate elevates symmetrically. Shoulder shrugging is normal..?Motor Examination:??Normal muscle tone, bulk and strength,?No atrophy or fasciculations,?No drift of the extended upper extremities,?Deep tendon reflexes are 2+ absent ankle reflexes and knee jerks,?Plantars are flexor?.?Motor Strength:?Proximal Muscles (out of 5):5Distal Muscles (out of 5):5Neck Flexors (out of 5):5Neck Extensors (out of 5):5Deltoid (out of 5):5Biceps (out of 5):5Triceps (out of 5):5Serratus Anterior (out of 5):5Wrist Extensors (out of 5):5APB (out of 5):5Finger Spread (out of 5):5Ileopsoas (out of 5):5Quadriceps (out of 5):5Hamstrings (out of 5):5Tibialis Anterior (out of 5):5Peronei (out of 5):5EDB (out of 5):5Gastrocnemius (out of 5):5Straight Leg Raising:??90 degrees.?Sensory Exam:??as above, vibration and joint-position sensations?,?Rhomberg sign is absent.?Coordination:??no ataxia,?no titubation,?[id number], cmhn-[id number] test and rapid alternating movements were normal.?Gait Exam:??Within normal limits.?Cerebellar Signs:??[id number]-ni-[id number] and rbcf-[id number] is normal,?no dysdiadochokinesia?.?Extrapyramidal System:??No tremor, rigidity with normal facial expressions,?No bradykinesia, no bradyphrenia. Normal arm swing and posture. No propulsion or retropulsion.?Speech:??Normal,?no dysphasia or dysarthria..? Mini Mental Status Exam: Level of Consciousness:??Alert.?Orientation:??Knows correct year, month, date, day and season,?Knows correct city, county and state. Knows correct location and floor.?Registration:??Able to register 3 objects.?Attention:??Serial 7's performed accurately.?Recall:??Able to recall 3 out of 3 objects.?Language:??Normal spontaneous speech, fluency, repetition,naming, comprehension, reading and writing.?Total Score:??30/30.? General Examination: GENERAL APPEARANCE:??normal,?in no acute distress.?HEAD:??normocephalic,?atraumatic.?EYES:??sclera non-icteric,?conjunctiva clear.?EARS:??auditory canal clear,?tympanic membrane intact, clear.?NOSE:??no lesions.?ORAL CAVITY:??gums normal,?mucosa moist,?no lesions.?THROAT:??clear.?NECK/THYROID:??no cervical lymphadenopathy,?thyroid normal,?neck supple, full range of motion,?no carotid bruit.?SKIN:??no rashes,?no significant birthmarks.?HEART:??S1, S2 normal,?no murmurs.?LUNGS:??clear anteriorly and posteriorly.?CHEST:??no gross rib deformity,?clear to auscultation.?BACK:??normal exam of spine.?EXTREMITIES:??no edema.?PERIPHERAL PULSES:??normal.?PSYCH:??alert, oriented,?cognitive function intact,?cooperative with exam.? Assessment & Plan Assessment & Plan (1) Peripheral neuropathy: Comment: Probably a mild form of ICU neuropathy from prolonged ICU stay in Oct and October 2024 Code(s): G62.9 - Polyneuropathy, unspecified Category: Medical Plan continue current meds. Trial of Pregabalin 75mg increasing to 150mg a day. Medications: New pregabalin 75 mg orally at HS for 2 wks then 1 bid; 60 caps 0RF Refilled meloxicam 15 mg PO DAILY 30 tabs 2RF 30 days Coding Level of Care Code Est Pt Level 4 (50376) Diagnoses Peripheral neuropathy G62.9
== END 2025-08-09 09:21 | disposition home or self-care (01) ==
LOC: HO.HSM 08:35
PROVIDERS: PCP Internal Medicine; Visit Provider Psychiatry & Neurology Neurology
DX: G62.9 Polyneuropathy, unspecified (principal)
CPT/HCPCS: 99214

== ENCOUNTER → 2025-08-09 08:35 | Outpatient (BNVA) | payer OTHER, SELFPAY | PROVIDERS: PCP Internal Medicine; Visit Provider Psychiatry & Neurology Neurology | DX: G62.9 Polyneuropathy, unspecified (principal); Z79.1 Long term (current) use of non-steroidal anti-inflammatories (NSAID) | CPT/HCPCS: 99212 ==